=== PATIENT | male | born 1945 | race Caucasian/White ===

== ENCOUNTER → 2018-11-22 14:32 | Outpatient (BNVA) | payer MEDICARE, OTHER, SELFPAY | PROVIDERS: PCP Family Medicine; Visit Provider Student in an Organized Health Care Education/Training Program | DX: I48.0 Paroxysmal atrial fibrillation (principal); Z95.2 Presence of prosthetic heart valve; I25.10 Atherosclerotic heart disease of native coronary artery without angina pectoris; I10 Essential (primary) hypertension; Z79.01 Long term (current) use of anticoagulants | CPT/HCPCS: 99214 ==

== ENCOUNTER 2019-02-27 11:47 | Outpatient (CLI) | payer MEDICARE, OTHER, SELFPAY ==
[2019-02-27 13:13] LABS: Anion Gap 9.7 mmol/L (3-11); BUN 17 mg/dL (7-18); CO2 27.3 mmol/L (21.0-32.0); CREATININE 1.02 mg/dL (0.70-1.30); Chloride 105 mmol/L (98-107); Glucose 101 mg/dL (70-100); Potassium 4.3 mmol/L (3.5-5.1); Sodium 142 mmol/L (136-145)
== END 2019-02-27 12:07 ==
PROVIDERS: PCP Family Medicine; Visit Provider Emergency Medicine
DX: I10 Essential (primary) hypertension (principal)
CPT/HCPCS: 36415; 80048

== ENCOUNTER 2020-01-15 14:37 | Emergency (ER) | payer MEDICARE, OTHER, SELFPAY ==
[2020-01-15 14:30] VITALS: BP 164/74; PULSE 76; RESP 16; TEMP 37.1; O2SAT 98
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
--- NOTE | 2020-01-15 15:15 | NUR.NOTE ---
Nursing Note: Wound cleaned and irrigated. LET applied to wound per provider request.
[2020-01-15 15:40] VITALS: BP 145/74; PULSE 77; RESP 16; TEMP 36.7; O2SAT 98
== END 2020-01-15 15:48 | disposition home or self-care (01) ==
LOC: ER 15:46
PROVIDERS: Emergency Provider Student in an Organized Health Care Education/Training Program; PCP Family Medicine
DX: S01.01XA Laceration without foreign body of scalp, initial encounter (principal); V47.5XXA Car driver injured in collision with fixed or stationary object in traffic accident, initial encounter; Z79.01 Long term (current) use of anticoagulants; I48.0 Paroxysmal atrial fibrillation; I10 Essential (primary) hypertension
CPT/HCPCS: 12002; 99284; 70450; 99281

== ENCOUNTER → 2020-02-12 09:36 | Outpatient (BNVA) | payer MEDICARE, OTHER, SELFPAY | PROVIDERS: PCP Family Medicine; Referring Provider Family Medicine; Visit Provider Internal Medicine Cardiovascular Disease | DX: I25.10 Atherosclerotic heart disease of native coronary artery without angina pectoris (principal); I48.0 Paroxysmal atrial fibrillation; Z95.3 Presence of xenogenic heart valve; I10 Essential (primary) hypertension | CPT/HCPCS: 99214 ==

== ENCOUNTER 2020-05-06 22:29 | Emergency (ER) | payer MEDICARE, OTHER, SELFPAY ==
[2020-05-06 22:34] VITALS: BP 136/73; PULSE 72; RESP 16; TEMP 36.7; O2SAT 96
--- NOTE | 2020-05-06 22:47 | NUR.NOTE ---
Bladder scan show 698mL.
[2020-05-06 23:04] LABS: Abs Immature Grans 0.01 10^3/uL (0.0-0.06); Absolute Basophil Count 0.03 10^3/uL (0.0-0.2); Absolute Lymphocyte Count 2.32 10^3/uL (1.2-3.4); Absolute Monocyte Count 0.59 10^3/uL (0.1-0.8); Absolute Neutrophil Count 4.78 10^3/uL (1.2-6.7); Basophils % 0.4; Eosinophils % 2.5; HGB 14.8 g/dL (13.5-17.5); Immature Grans % 0.1; Lymphocytes % 29.3; MCH 30.5 pg (27.0-33.0); MCHC 33.6 % (32.0-36.0); MCV 90.5 fL (80-95); MPV 9.8 fL (8.0-11.0); Monocytes % 7.4; Neutrophils % 60.3; Nucleated RBC 0 %; Platelet Count 183 10^3/uL (130-400); RBC 4.86 10^6/uL (4.36-5.78); RDW 12.6 % (11.8-14.1); RDW-SD 41.7 fL; WBC 7.93 10^3/uL (4.4-10.8)
[2020-05-06] MEDS: Lidocaine 2% Jelly 6 ML SYR (23:10)
--- NOTE | 2020-05-06 23:10 | ED.GENADUL_ITS ---
Discharge Plan Disposition Patient Disposition: HOME Condition: Good Discharge Details Clinical Impression: Hematuria Primary Care Provider: Tiffanie Wick ED Provider: Dion Thompson Home Meds and New Rx's Prescriptions: Continued aspirin [Adult Aspirin Regimen] 81 mg tablet,delayed release (DR/EC) 81 mg PO DAILY RF: 0 triamcinolone acetonide 0.1 % cream 1 applic TP BID Qty: 30 RF: 2 garlic 1 EACH capsule 1 ea PO DAILY RF: 0 amlodipine 10 mg tablet 10 mg PO DAILY Qty: 90 RF: 4 atorvastatin 20 mg tablet 20 mg PO DAILY Qty: 90 RF: 4 metoprolol succinate 50 mg tablet extended release 24 hr 50 mg PO DAILY Qty: 90 RF: 4 Eliquis 5 mg tablet 5 mg PO BID Qty: 180 RF: 4 furosemide 40 mg tablet 40 mg PO DAILY Qty: 90 RF: 4 Discharge Instructions Instructions: Hematuria (ED) Additional Instructions: At this time your hemoglobin is stable. I suspect that your symptoms are from a small lesion in your bladder. This does need to be followed up closely with urology. Please contact their office tomorrow morning. At this time you have elected to have the Terrazas catheter removed. You may have blockage again, and if you do please return immediately. If you notice any worsening of your symptoms, or any new symptoms such as vomiting, diarrhea, fever, chills, shortness of nickolas ath, chest pain, numbness, weakness, or fainting , please return immediately to the emergency department for reevaluation. Please follow up with your primary care provider as soon as possible for reassessment and reevaluation. As always, it was a pleasure participating in your medical care today. Also, there is risks and benefits with taking your blood thinner. Currently your hemoglobin/blood levels are stable, and you have not lost a significant amount of blood. I suspect that the bleeding will not stop if you keep taking your blood thinner, but it still may continue even if you continue stopping it. However there is significant risk of not being on a blood thinner with your atrial fibrillation which could lead to stroke which could likely be even more deleterious. At this time I would recommend cautiously taking her blood thinner still, and watching for any signs of significant blood loss such as lightheadedness, palpitations, or worsening blood loss in your urine. When you call Dr. Haines's office tomorrow at the included number, please let them know you are in the emergency department had a significant amount of bleeding in your urine, and the emergency doctor, Dr. Thompson would like you to be seen. Referrals: Tiffanie Wick NP [Primary Care Provider] - Hari Haines MD [ [facility] STAFF PHYSICIAN] - Medical Decision Making 75-year-old male with past medical history of aortic valve replacement, paroxysmal A. fib on Eliquis, who presents today for evaluation of hematuria. Patient states that for the last 3 to 5 days he has had a mild amount of blood in his urine, no significant pain, no lightheadedness or syncope. Over the last hour and a half though, he had slight increase, and then subsequently noticed pressure and was unable to urinate anymore. This is the first time this is happened. Since then, in spite of straining, he has been unable to pass any urine. Aside from mild pressure in the suprapubic region he denies any pain, burning, or other complaints. No prior history of hematuria in the past. No other complaints or modifying factors at this time. The patient has still been taking his Eliquis. Physical exam demonstrates a small amount of blood at the urethral meatus, no penile tenderness or other abnormality. He does have 700 mL of retained urine. Terrazas catheter was placed, notable amount of bloody urine returned, no evidence of large clots. We will do a mild washout, monitor closely. Hemoglobin is 14.8 notably stable, he is hemodynamically stable. He will require urology follow-up for reassessment. 12:30 AM Patient's labs have returned normal, hemoglobin platelets are all normal. Renal function stable. No signs of severe blood loss, the patient remains hemodynamically stable. Patient's bladder was drained, flush, a red-tinged urine is now coming, but there is no evidence of clots. I did discuss keeping the Terrazas catheter in, however the patient because of his lifestyle does not want that at this point and would like the Terrazas to be taken out and not left him. We did discuss the risks of this, and he understands the potential for retention again. At this time there is no indication for emergent admission or emergent uroscopy/cystoscopy. Patient will be discharged. Will recommend close follow-up with urology for further assessment and cystoscopy. Because of the current provider status for urology he may require additional procedures to be performed at [facility]. We will place a referral with our urologist to start the process though. I also contacted the patient's and discussed the scenario with her. I have extensively reviewed the treatment plan and discharge instructions with the patient and their family. I have addressed all patient concerns at this time. The patient and family was made aware of what symptoms to monitor for that would warrant a return to the emergency department. Discussed the plan with the patient and family, they demonstrate verbal understanding and agreement with our assessment and plan at this time. HPI General Date/Time Provider Initiated Documentation: 05/06/20 22:32 . HPI Narrative: 75-year-old male with past medical history of aortic valve replace ment, paroxysmal A. fib on Eliquis, who presents today for evaluation of hematuria. Patient states that for the last 3 to 5 days he has had a mild amount of blood in his urine, no significant pain, no lightheadedness or syncope. Over the last hour and a half though, he had slight increase, and then subsequently noticed pressure and was unable to urinate anymore. This is the first time this is happened. Since then, in spite of straining, he has been unable to pass any urine. Aside from mild pressure in the suprapubic region he denies any pain, burning, or other complaints. No prior history of hematuria in the past. No other complaints or modifying factors at this time. The patient is still taking his Eliquis. Related Data Home Medications Medication Instructions Recorded Confirmed garlic 1 ea PO DAILY tab-cap 08/20/15 05/06/20 aspirin 81 mg tablet,delayed 81 mg PO DAILY 11/22/18 05/06/20 release triamcinolone acetonide 0.1 % 1 applic TP BID #30 gm 05/24/19 05/06/20 topical cream amlodipine 10 mg tablet 10 mg PO DAILY #90 tab-cap 06/11/19 05/06/20 atorvastatin 20 mg tablet 20 mg PO DAILY #90 tab 07/02/19 05/06/20 metoprolol succinate 50 mg 50 mg PO DAILY #90 tab 07/02/19 05/06/20 tablet,extended release 24 hr apixaban 5 mg tablet 5 mg PO BID #180 tab 07/03/19 05/06/20 furosemide 40 mg tablet 40 mg PO DAILY #90 tab-cap 07/16/19 05/06/20 Previous Rx's Medication Instructions Recorded triamcinolone acetonide 0.1 % 1 applic TP BID #30 gm 05/24/19 topical cream amlodipine 10 mg tablet 10 mg PO DAILY #90 tab-cap 06/11/19 atorvastatin 20 mg tablet 20 mg PO DAILY #90 tab 07/02/19 metoprolol succinate 50 mg 50 mg PO DAILY #90 tab 07/02/19 tablet,extended release 24 hr apixaban 5 mg tablet 5 mg PO BID #180 tab 07/03/19 furosemide 40 mg tablet 40 mg PO DAILY #90 tab-cap 07/16/19 Allergies Allergy/AdvReac Type Severity Reaction Status Date / Time adhesive Allergy Intermediate redness, Verified 04/03/20 14:41 burning sensation, blisters blue dye Allergy Verified 04/03/20 14:41 cephalexin monohydrate AdvReac Intermediate diarrhea Verified 04/03/20 14:41 [From Keflex] General Stated Complaint: Urinary OLIMPIA: 3 Review of Systems All systems reviewed & are unremarkable except as noted in HPI and below PFSH Social History Smoking/Tobacco Use Status: Current every day Tobacco Type: pipe Alcohol Intake: current Alcohol Intake frequency: 0-2 drinks per day Drug use: Never Substance use type: does not use Do you feel safe at home: Yes Do you feel safe in your relationship?: Yes Exam Narrative Exam Narrative: 1.Const: Well-nourished, Well-developed, appearing stated age 2.Eyes: PERRL, no conjunctival injection, and symmetrical lids. 3.ENT: Atraumatic external nose and ears. Moist MM. Neck: Symmetric, trachea midline, No thyromegaly. 4.CVS: +S1/S2, No murmurs or gallops. Peripheral pulses 2+ and equal in all extremities. Brisk capillary refill in all extremities. 5.RESP: Unlabored respiratory effort. Clear to auscultation bilaterally. No wheezes rales or rhonchi 6.GI: Soft, Nontender/Nondistended, No hepatosplenomegaly. No guarding or rebound. Genital exam demonstrates an uncircumcised penis, no penile tenderness, small amount of blood at the urethral meatus. No testicular or scrotal tenderness. No other abnormalities. 7.MSK: Normocephalic/Atraumatic, Extremities w/o deformity or ttp No cyanosis or clubbing, Normal movement of all extremities 8.Skin: Warm, Dry. No rashes or lesions. 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 Sensation grossly intact, no focal neurologic deficits. 10.Psych: (AAO) x3. Appropriate mood and affect Course Vital Signs Vital signs: Vital Signs Temperature 36.7 C 05/06/20 22:34 Pulse 72 05/06/20 22:34 Respiratory Rate 16 05/06/20 22:34 Blood Pressure 136/73 05/06/20 22:34 Pulse Oximetry 96 05/06/20 22:34 Temperature 36.7 C 05/06/20 22:34 Temperature Source Skin 05/06/20 22:34 Pulse 72 05/06/20 22:34 Respiratory Rate 16 05/06/20 22:34 Respiratory Effort 05/06/20 22:36 Blood Pressure 136/73 05/06/20 22:34 Blood Pressure Position Sitting 05/06/20 22:34 Pulse Oximetry 96 05/06/20 22:34 Oxygen Delivery Method Room Air 05/06/20 22:34 Oxygen Flow Rate 0 05/06/20 22:34 Pain Level 0 05/06/20 22:34 Lab/Test Results Lab/Test Results: Laboratory Tests Range/Units 05/06/20 22:55 WBC (4.4-10.8) 10^3/uL 7.93 RBC (4.36-5.78) 10^6/uL 4.86 Hgb (13.5-17.5) g/dL 14.8 Hct (40.0-50.0) % 44.0 MCV (80-95) fL 90.5 MCH (27.0-33.0) pg 30.5 MCHC (32.0-36.0) % 33.6 RDW (11.8-14.1) % 12.6 Plt Count (130-400) 10^3/uL 183 MPV (8.0-11.0) fL 9.8 Immature Gran % 0.1 Neutrophils % 60.3 Lymphocytes % 29.3 Monocytes % 7.4 Eosinophils % 2.5 Basophils % 0.4 Nucleated RBC % % 0 Absolute Neutrophils (1.2-6.7) 10^3/uL 4.78 Absolute Lymphocytes (1.2-3.4) 10^3/uL 2.32 Absolute Monocytes (0.1-0.8) 10^3/uL 0.59 Absolute Eosinophils (0.0-0.7) 10^3/uL 0.20 Absolute Basophils (0.0-0.2) 10^3/uL 0.03
[2020-05-06 23:16] LABS: ALT 39 U/L (16-63); AST 27 U/L (15-37); Albumin 3.8 g/dL (3.4-5.0); Alkaline Phosphatase 106 U/L (46-116); Anion Gap 8.8 mmol/L (3-11); BUN 16 mg/dL (7-18); Bilirubin, Total 0.5 mg/dL (0.2-1.0); CO2 26.2 mmol/L (21.0-32.0); CREATININE 0.95 mg/dL (0.70-1.30); Calcium 8.5 mg/dL (8.5-10.1); Chloride 103 mmol/L (98-107); Glucose 114 mg/dL (74-106); Potassium 3.3 mmol/L (3.5-5.1); Sodium 138 mmol/L (136-145); Total Protein 7.1 g/dL (6.4-8.2)
[2020-05-06 23:36] LABS: INR 1.1 (0.9-1.1); PTT Activated 26.6 sec (21.0-31.4); Prothrombin Time 10.6 sec (9.3-11.0)
[2020-05-06 23:36] LABS: Bilirubin Negative (Negative); Blood Large (Negative); Clarity Cloudy (Clear); Glucose Negative (Negative); Ketones Negative (Negative); Leukocyte Esterase Negative (Negative); Nitrite Negative (Negative); Specific Gravity >= 1.030 (1.005-1.025); Urobilinogen 0.2 EU/dL (Up TO 0.2); pH 6.5 (5-8)
[2020-05-06 23:37] LABS: C & S Indicated? Yes; RBC >50 HPF (0-2)
--- NOTE | 2020-05-07 00:04 | NUR.NOTE ---
16fr hernandez placed using sterile technique. pt cristela well. Immediately drained dark red urine. hand irrigated x 2 followed by bright red urine draining. Pt reports relief of abd discomfort.
--- NOTE | 2020-05-07 00:30 | NUR.NOTE ---
Urine light red, hernandez patent. Pt declined to go home with catheter in place. Hernandez removed, balloon intact. pt aware dtv [phone]
== END 2020-05-07 00:32 | disposition home or self-care (01) ==
PROVIDERS: Emergency Provider Student in an Organized Health Care Education/Training Program; PCP Nurse Practitioner Family
DX: R33.8 Other retention of urine (principal); R31.0 Gross hematuria; T45.515A Adverse effect of anticoagulants, initial encounter; I48.0 Paroxysmal atrial fibrillation; Z79.01 Long term (current) use of anticoagulants
CPT/HCPCS: 36415; 51702; 80053; 99284; 81003; 81015; 85025; 85610; 85730; 87086

== ENCOUNTER 2020-05-12 12:54 | Outpatient (REF) | payer MEDICARE, OTHER, SELFPAY | END 2020-05-12 13:14 | LOC: URO 12:54 | PROVIDERS: PCP Nurse Practitioner Family; Referring Provider Nurse Practitioner Family; Visit Provider Nurse Practitioner Gerontology | DX: N40.1 Benign prostatic hyperplasia with lower urinary tract symptoms (principal); R39.11 Hesitancy of micturition; I10 Essential (primary) hypertension; R31.9 Hematuria, unspecified | CPT/HCPCS: 81003; 84153; 99204; 99215 ==

== ENCOUNTER 2020-05-12 14:20 | Outpatient (REF) | payer MEDICARE, OTHER, SELFPAY ==
[2020-05-12 22:08] LABS: PSA, Screening 0.6 ng/mL (0.0-6.5)
== END 2020-05-12 14:40 ==
LOC: LBN 14:20
PROVIDERS: Nurse Practitioner Gerontology; PCP Nurse Practitioner Family; Visit Provider Nurse Practitioner Family
DX: R31.9 Hematuria, unspecified (principal); N40.1 Benign prostatic hyperplasia with lower urinary tract symptoms; Z12.5 Encounter for screening for malignant neoplasm of prostate
CPT/HCPCS: 84153

== ENCOUNTER 2020-05-19 01:18 | Outpatient (CLI) | payer MEDICARE, OTHER, SELFPAY ==
--- NOTE | 2020-05-19 06:30 | DI.CT_ITS ---
EXAM: CT ABDOMEN PELVIS WO/W TECHNIQUE: Imaging Protocol: Axial computed tomography images with coronal and sagittal reformatted images were created and reviewed CONTRAST MATERIAL: Intravenous: Omnipaque 350 Contrast volume:100 ml Contrast route:IV - Oral:yes COMPARISON: CT CT CARDIAC WITH AND WITHOUT CONTRAST, CT ANGIO ABDOMEN/PELVIS WI from 12/19/2015 FINDINGS: ABDOMEN: Lung Bases: Normal where visualized. Liver: Normal density. Tiny cyst anterior right lobe. Gallbladder and biliary tract: No radiodense calculus or dilation. Pancreas: Normal density, no abnormal calcifications or inflammatory process. Spleen: Normal. Kidneys: Normal size, contour and axis. No radiodense stones or obstructive uropathy. No masses seen. Adrenal glands: No masses seen. Lymph nodes: Within normal limits. Abdominal Aorta: Abdominal portion non-dilated. Mild calcification. Small fatty umbilical hernia containing a nonobstructed loop of small bowel. PELVIS: Bladder: 14 x 17 millimeter mass seen along the left posterior inferior bladder wall. No calcificati ons. Mild adjacent wall thickening. Bowel: No obstruction or bowel wall thickening. Diverticulosis. Normal appendix. Peritoneal cavity: No ascites, collection or mesenteric inflammatory response. Bilateral fatty containing inguinal hernias, right greater than left. Bones: Mild degenerative changes. Sclerotic area in the S2 vertebral body, likely a bone island. Reproductive organs: Prostate mildly enlarged. IMPRESSION: 1.7 centimeter mass in the posterior left side of the bladder. The kidneys are unremarkable. RADIATION DOSE DELIVERED: 2,389.5mGy.cm Total DLP DATA REPOSITORY: All CT scans at this facility are submitted to the National Radiology Data Registry (NRDR) Dose Index Registry (DIR) with the [employer] (ACR). RADIATION OPTIMIZATION: All CT scans at this facility use at least one of these dose optimization te chniques: automated exposure control; mA and/or kV adjustment per patient size (includes targeted exa ms where dose is matched to clinical indication); or iterative reconstruction.
[2020-05-19] MEDS: Omnipaque 350 MG/ML 100 ML BTL IJ (09:55)
[2020-05-19] MEDS: Normal Saline - Diluent 50 ML VIAL IV (09:56)
== END 2020-05-19 01:38 ==
PROVIDERS: PCP Nurse Practitioner Family; Visit Provider Nurse Practitioner Gerontology
DX: N32.89 Other specified disorders of bladder (principal)
CPT/HCPCS: 74178; J3490

== ENCOUNTER 2020-05-21 14:00 | Outpatient (CLI) | payer MEDICARE, OTHER, SELFPAY | END 2020-05-21 14:20 | PROVIDERS: PCP Nurse Practitioner Family; Visit Provider Nurse Practitioner Gerontology | DX: N32.89 Other specified disorders of bladder (principal); R35.1 Nocturia | CPT/HCPCS: 99441 ==

== ENCOUNTER 2020-10-02 20:49 | Outpatient (REF) | payer MEDICARE, SELFPAY ==
[2020-10-02 21:22] LABS: Hemoglobin A1C 6.1 % (<5.7)
[2020-10-02 21:30] LABS: Anion Gap 9.1 mmol/L (3-11); BUN 17 mg/dL (7-18); CO2 29.9 mmol/L (21.0-32.0); CREATININE 1.2 mg/dL (0.70-1.30); Calcium 9.2 mg/dL (8.5-10.1); Calculated LDL 74 mg/dL (<100); Chloride 105 mmol/L (98-107); Cholesterol 150 mg/dL (<200); Estimated GFR 58.71 (mL/min/1.73m2); Glucose 134 mg/dL (74-106); HDL Cholesterol 53 mg/dL (40-60); Potassium 3.8 mmol/L (3.5-5.1); Sodium 144 mmol/L (136-145); Triglyceride 116 mg/dL (<150)
== END 2020-10-02 20:50 | disposition home or self-care (01) ==
LOC: LBN 20:49
PROVIDERS: PCP Nurse Practitioner Family; Visit Provider Nurse Practitioner Family
DX: R73.03 Prediabetes (principal); I10 Essential (primary) hypertension; E78.5 Hyperlipidemia, unspecified
CPT/HCPCS: 80048; 80061; 83036

== ENCOUNTER 2021-02-10 02:20 | Outpatient (CLI) | payer MEDICARE, SELFPAY ==
--- NOTE | 2021-02-10 14:11 | DI.US_ITS ---
APPROVED REPORT EXAM: Comprehensive 2D, Doppler, and color-flow Echocardiogram Patient Location: Out-Patient Block Operator: Gege Zuluaga RDCS (AE) Indications: Porcine aortic valve, CAD Other Information Study Quality: Adequate Conclusion Left Ventricle : The left ventricle is normal size. There is normal left ventricular wall thickness. The left ventricular ejection fraction is within the normal range. There is normal LV segmental wall motion. LVEF is 58%. Right Ventricle : The right ventricle is normal size. The right ventricular systolic function is norm al. Atria : The left atrium size is normal. The right atrium size is normal. Aortic Valve : Bioprosthetic aortic valve is present. Trivial aortic regurgitation. Moderately elevat ed gradients. Mean gradient 25 mmHg, peak gradient 42 mmHg. V-max 3.25 m/s Great Vessels : The aortic root is normal in size. The ascending aorta is moderately dilated. Aortic arch is normal in caliber. IVC is normal in size and collapses >50% with inspiration. Compared to echocardiogram from 11/16/2017, the mean gradient across the bioprosthetic aortic valve young s increased from 10 mmHg to 25 mmHg. Peak velocity is also increased from 2.1 m/s to 3.2 m/s. Wall motion Left Ventricle The left ventricle is normal size. The left ventricular ejection fraction is within the normal range. There is normal left ventricular wall thickness. There is normal LV segmental wall motion. There is no ventricular septal defect visualized. LVEF is 58%. Right Ventricle The right ventricle is normal size. The right ventricular systolic function is normal. Atria The left atrium size is normal. The right atrium size is normal. The interatrial septum is intact wit h no evidence for an atrial septal defect. Aortic Valve Moderately elevated gradient. Mean gradient 25 mmHg, peak gradient 42 mmHg.. V-max 3.25 m/s Trivial a ortic regurgitation. Bioprosthetic aortic valve is present. Mitral Valve Moderate mitral annular calcification. No evidence of mitral valve stenosis. Trace mitral regurgitati on. Tricuspid Valve The tricuspid valve is normal in structure. There is no tricuspid valve stenosis. Trace tricuspid reg urgitation. Unable to assess PA pressure. Pulmonic Valve The pulmonary valve is normal in structure. There is no pulmonic valvular stenosis. Trace pulmonic re gurgitation. Great Vessels The aortic root is normal in size. The ascending aorta is moderately dilated. Aortic arch is normal i n caliber. IVC is normal in size and collapses >50% with inspiration. Pericardium There is no pericardial effusion. 2D Dimensions IVSD d PLAX 1.20 cm M: 0.6-1.2 LV Vol A2C d MOD 111.2 mL LVPW d PLAX 1.21 cm M: 0.6 - 1.2 LV Vol A4C d MOD 135.9 mL LVID d PLAX 4.49 cm M: 4.2 - 5.8 LA vol/ BSA A2C s A-L 30.9 mL/m2 LVDs 2.85 cm M: 2.5 - 4.0 LA vol/ BSA A4C s A-L 31.5 mL/m2 Ao Root d 2.85 cm M: 3.1 - 3.7 LA Vol/ BSA Biplane s A-L 32.0 mL/m2 RA Area A4C 16.77 cm2 LA Area A4C s MOD 21.37 cm2 RA Vol/ BSA A4C s A-L 23.6 mL/m2 LA Area A2C s MOD 20.62 cm2 Ao Asc Diam d 4.04 cm M: 2.6 - 3.4 LV EF A4C MOD 56.3 % LV EF Teichholz 65.2 % LV EF A2C MOD 57.8 % LVEF (Rodriguez's) 56.34 % M: 52 - 72 LV EF Biplane MOD 56.3 % LV Volume 92.42 mL M: 62 - 150 SV 69.33 mL LV Volume Index 46.44 mL/m2 M: 34 - 74 SV Index 34.81 mL/m2 LV Vol Biplane MOD 123.1 mL FS 35.55 % M-Mode TAPSE 1.67 cm (M/F) >1.7 LV Diastology MV E' medial 0.065 (>0.07 m/s) E/A Ratio 1.2 LV E/e MED 13.25 (<14) MV E Vmax 0.86 (0.4-1.3 m/s) MV E' lateral 0.083 (>0.1 m/s) MV A Vmax 0.70 (0.4-1.3 m/s) LV E/e LAT 10.40 (<14) MV E/A Ratio 1.18 MV E/E' medial 13.27 MV E/E' lateral 10.40 Aortic Valve LVOT Area 3.18 cm2 AoV Area Vmax 1.25 cm2 LVOT Vmax 1.28 m/s AoV Area/ BSA (Vmax) 0.63 cm2/m2 LVOT Mean Rishi. 0.98 m/s ALONDRA Mean Rishi. 1.31 cm2 LVOT Peak Grad 6.5 mmHg ALONDRA Mean Rishi. Index 0.66 cm2/m2 LVOT Mean Grad 4.1 mmHg LVOT VTI 0.338 m LVOT Diam s 2.00 cm AoV Vmax 3.25 m/s Velocity Ratio 0.39 AoV Mean Rishi. 2.38 m/s AoV Peak Grad 42.2 mmHg LVOT SV 107.53 mL AoV Mean Grad 25.4 mmHg AoV VTI 0.802 m AoV Area VTI 1.34 cm2 AoV Area/ BSA (VTI) 0.67 cm/m2 Mitral Valve MV DT 224 (160-240 msec) MV PHT 65 msec MV Area PHT 3.39 cm2 MV VTI 0.312 m MV VTI Annulus 0.328 m MV Area VTI 3.62 (4.0-6.0 cm2) Pulmonary Valve PV Vmax 0.97 (0.5-1.5 m/s) RVOT Peak Gr. 2.39 mmHg PV Peak Grad 3.7 mmHg RVOT Mean Gr. 1.25 mmHg PV Mean Grad 1.9 mmHg RVOT VTI 0.184 m PV VTI 0.196 m RVOT Vmax 0.77 m/s
== END 2021-02-10 02:40 ==
PROVIDERS: PCP Nurse Practitioner Family; Visit Provider Internal Medicine Cardiovascular Disease
DX: I25.10 Atherosclerotic heart disease of native coronary artery without angina pectoris (principal); I77.810 Thoracic aortic ectasia; Z95.3 Presence of xenogenic heart valve
CPT/HCPCS: 93306

== ENCOUNTER → 2021-02-16 10:34 | Outpatient (BNVA) | payer MEDICARE, SELFPAY | PROVIDERS: PCP Nurse Practitioner Family; Referring Provider Family Medicine; Visit Provider Internal Medicine Cardiovascular Disease | DX: I10 Essential (primary) hypertension (principal); I25.10 Atherosclerotic heart disease of native coronary artery without angina pectoris; I48.0 Paroxysmal atrial fibrillation; Z95.3 Presence of xenogenic heart valve | CPT/HCPCS: 99213 ==

== ENCOUNTER 2021-10-15 03:53 | Outpatient (CLI) | payer MEDICARE, OTHER, SELFPAY ==
[2021-10-15 09:22] LABS: HCT 48.1 % (40.0-50.0); HGB 15.7 g/dL (13.5-17.5); MCH 29.1 pg (27.0-33.0); MCHC 32.6 % (32.0-36.0); MCV 89.1 fL (80-95); MPV 10.1 fL (8.0-11.0); Platelet Count 151 10^3/uL (130-400); RDW 12.8 % (11.8-14.1); RDW-SD 41.8 fL; WBC 7.07 10^3/uL (4.4-10.8)
[2021-10-15 09:28] LABS: Hemoglobin A1C 6.1 % (<5.7)
[2021-10-15 10:56] LABS: Anion Gap 9.3 mmol/L (3-11); BUN 17 mg/dL (7-18); CO2 28.7 mmol/L (21.0-32.0); Calcium 8.7 mg/dL (8.5-10.1); Chloride 100 mmol/L (98-107); Glucose 112 mg/dL (74-106); Sodium 138 mmol/L (136-145); Vitamin B12 456 pg/mL (193-986)
== END 2021-10-15 03:54 | disposition home or self-care (01) ==
LOC: LBO 03:53
PROVIDERS: PCP Nurse Practitioner Family; Visit Provider Nurse Practitioner Family
DX: G62.9 Polyneuropathy, unspecified (principal); R73.03 Prediabetes; I48.0 Paroxysmal atrial fibrillation
CPT/HCPCS: 36415; 80048; 85027; 82607; 83036

== ENCOUNTER → 2022-02-12 00:56 | Outpatient (CLI) | payer MEDICARE, OTHER, SELFPAY ==
--- OUTSIDE RECORDS SUMMARY | 2022-02-12 00:58 | XMS_ITS | Encounter Summary ---
:1945 Author Organization [facility] Address [address] [place] [address] Care Team Providers Name Role Phone Unknown, Provider Primary Care Provider Encounter Details Date Type Department Care Team Description 05/12/2020 Lab Requisition [facility] Outr Resulting Lab, Pathology & Laboratory Provider [facility] [address] [place] [address] Social History Tobacco Use Types Packs/Day Years Used Date Never Assessed Sex Assigned at Date Recorded Not on file documented as of this encounter Plan of Treatment Not on filedocumented as of this encounter Procedures Procedure Name Priority Date/Time Associated Comments Diagnosis PSA TOTAL, Routine 05/12/2020 13:40 Results for this DIAGNOSTIC EDT procedure are i n the results section. documented in this encounter Results PSA TOTAL, DIAGNOSTIC (05/12/2020 13:40 EDT) Pathologist Sig nature PSA 0.6 0.0 - 6.5 ng/mL [facility] Specimen Blood - Venous blood (substance) Narrative [facility] - 05/12/2020 22:04 EDT NOTE: Serum PSA concentration should not be in terpreted as absolute evidence for the presence or absence of malignant disease. Assayed on Siemens ADVIA Centaur XPT usi ng chemiluminescent technology.??Values obtained by using different assay methods cannot be used interchangeably. Performing Organization Address City/State/ZIP Code Phon e Number [facility] [address] [place] [address] SERVICES documented in this encounter Visit Diagnoses Not on filedocumented in this encounter Care Teams Stock Sheets Cleaner Inspector Relationship Specialty Start Date End Date Unknown, Provider, PCP - General 07/10/15 documented as of this encounter
--- OUTSIDE RECORDS SUMMARY | 2022-02-12 00:58 | XMS_ITS | Encounter Summary ---
:1945 Author Organization [facility] [place] [address] Care Team Providers Name Role Phone Kristofer Velasquez MD Primary Care Provider Encounter Details Date Type Department Care Team Description 07/08/2020 Telephone Urology at [facility] [place] Kristofer Romero MD [facility] [place] [phone] UROLOGY [phone] [place], [place] [address] (Wo rk) Social History Tobacco Use Types Packs/Day Years Used Date Current Every Day Smoker Pipe Smokeless Tobacco: Never Used Sex Assigned at Date Recorded Not on file documented as of this encounter Miscellaneous Notes Telephone Encounter - Kaela Melvin - 07/08/2020 9:31 AM EST Called pt to reschedule 07/21 bumped appointment. However, pt did not have surgery on 07/01 and no longer needs 07/21 appt. said he did not need to reschedule and would call if/when he feels he needs to be seen. documented in this encounter Plan of Treatment Not on filedocumented as of this encounter Visit Diagnoses Not on filedocumented in this encounter Care Teams Senior Cobol Developer Relationship Specialty Start Date End Date Kristofer Velasquez MD PCP - General Family Medicine 04/14/20 10/06/[address] [place] [address] documented as of this encounter
--- OUTSIDE RECORDS SUMMARY | 2022-02-12 00:58 | XMS_ITS | Encounter Summary ---
:1945 Author Organization [facility] Address [address] [place] [address] Care Team Providers Name Role Phone Unavailable Primary Care Provider Unavailable Encounter Details Date Type Department Care Team Description 07/08/2015 Hospital Encounter [facility] - S Unknown, Pro Nolvia burroughs MD [address] [facility] [phone] [place] [address] (Work) [phone] Social History Tobacco Use Types Packs/Day Years Used Date Never Assessed Sex Assigned at Date Recorded Not on file documented as of this encounter Discharge Disposition Disposition Code Departure Means Destination Home or Self Alf documented in this encounter Plan of Treatment Not on filedocumented as of this encounter Visit Diagnoses Not on filedocumented in this encounter
--- OUTSIDE RECORDS SUMMARY | 2022-02-12 00:58 | XMS_ITS | Clinical Summary ---
:1945 Author Organization [facility] Address [address] [place] [address] Care Team Providers Name Role Phone Unknown, Provider Primary Care Provider Social History Tobacco Use Types Packs/Day Years Used Date Never Assessed Sex Assigned at Date Recorded Not on file Plan of Treatment Health Maintenance Due Date Last Done Comments Fall Risk Screening 02/13/2008 Care Teams Band Head Saw Operator Relationship Specialty Start Date End Date Unknown, Provider, PCP - General 07/10/15
--- OUTSIDE RECORDS SUMMARY | 2022-02-12 00:58 | XMS_ITS | Encounter Summary ---
:1945 Author Organization [facility] [place] [address] Care Team Providers Name Role Phone Kristofer Velasquez MD Primary Care Provider Reason for Visit Reason Comments Bladder Cancer Consultation (MARY) - Closed Specialty Diagnoses / Procedures Referred By Contact Refer red To Contact Urology Diagnoses Other specified disorders of bladder 1.7 centimeter mass in the posterior left side of the bladder Hx of gross hematuria Requesting MARY/urgent cysto w/ TURB-T Sarita Pearson, DAVID [facility] [address] [place] [id number] Referral ID Status Reason Start Date Expiration Date Visits V isits Requested Authorized [id number] Closed Consult, 05/21/2020 05/21/2021 1 1 Test & Treat Encounter Details Date Type Department Care Team Description 05/29/2020 Office Visit Hematology and Kristofer Romero MD Hematuria, unspecified type; Oncology at [facility] Bladder mass [facility] [place] UROLOGY [place], [place] [phone] Social History Tobacco Use Types Packs/Day Years Used Date Current Every Day Smoker Pipe Smokeless Tobacco: Never Used Sex Assigned at Date Recorded Not on file documented as of this encounter Last Filed Vital Signs Vital Sign Reading Time Taken Comments Blood Pressure 155/83 05/29/2020 10:08 AM EDT Pulse 66 05/29/2020 10:08 AM EDT Temperature - - Respiratory Rate 18 05/29/2020 10:08 AM EDT Oxygen Saturation 98% 05/29/2020 10:08 AM EDT Inhaled Oxygen Concentration - - Weight 91.1 kg (200 lb 13.4 oz) 05/29/2020 10:08 AM EDT Height 168.5 cm (5' 6.34) 05/29/2020 10:08 AM EDT Body Mass Index 32.09 05/29/2020 10:08 AM EDT documented in this encounter Progress Notes Kristofer Romero MD - 05/29/2020 9:50 AM EDT Patient Name: Rosas Kaplan Date of Service: 05/29/2020 Primary Care Provider: Kristofer Velasquez MD Reason for Visit: Rosas Kaplan is a 75 y.o. male who is referred for evaluation of a bladder massand hematuria. Patient initially noted hematuria in early 05/2020. Subsequently hisbleeding worsened and he developed urinary retention related to hematuria.~ 3 weeksago Currently the patient has no irritative symptoms with minimal frequencyand nocturia x 1. The urinarystream is OK and the bladder is emptied completely. There has no hematuria for 2 weeks. Appetite is good weight is stable. There is no bone pain. 05/2020: IPSS 7/35 Past Medical History: A Fib Hyperlipidemia HTN CAD Past Surgical History: 2016 [facility] Groin surgery age 2-3 years of age Medications: Reviewed Allergies: Reviewed Family History: There is no family history of bladder /renal tumor. No diseases run in the family. 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 The patient has been for 11 years. The patient drinks3 per day. Tobacco: Smokes a pipe. Encouraged quit. Systems review: No regular exercise. He can walk 203 flights of stairs. HEENT: Denies problems with vision, hearing, runny nose, epistaxis, sore throat, hoarseness Cardiovascular: Denies Chest pain, palpitations, shortness of breath, ankle swelling, claudication Respiratory: Denies cough, phlegm, hemoptysis,wheeze, Gastrointestinal: Denies nausea, difficulty swallowing, vomiting, hematemesis, constipation, diarrhea, blood per rectum Neurological: Denies dizziness, double vision, headache, weakness of one side of the body or the other,sudden loss of vision in one eye, Bones and muscles: Denies bone pain, radiating pain, muscle weakness or sore ness. All other systems negative. Physical Exam: Vital Signs are reviewed. The patient appears healthy and in no distress. Examination of the hands, head neck, eyes ears nose and throat is normal. The skin is normal. There is no lymphadenopathy or thyroidomegaly. He is edentulous. The chest is clear to percussion and auscultation. Heart sounds I and II are normal without murmurs or added sounds. Peripheral pulses are full withoutbruits The abdomen is benign. There are no masses or organomegaly. External genitalia is normal with bilaterally descended testis and normal phallus Examination of the extremities and neurological examination is grossly normal. Lab values are reviewed 05/2002 PSA 0.6 X-rays are reviewed 05/19/2020 CT Urogram Enhancing Left bladder base mass.. No adenopathy. No hydronephrosis. No renal masses Cystoscopy 05/2020 ~ 2cm papillary appearing bladder tumor on the Left trigone, likely high grade. I was unableto see the LUCAS. 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 We will make the arrangements. documented in this encounter Procedure Notes Kristofer Romero MD - 05/29/2020 9:50 AM EDTAssociated Order(s): CYSTOSCOPY Pre-Procedure Diagnose(s): Bladder mass Procedure: Flexible Cystoscopy Surgeon: Kristofer Romero Preoperative Diagnosis: Hemturia Post Operative Diagnosis: 2cm Bladder Cancer Left hemitrigone Complications: None Procedure: Urinalysis revealed no evidence of an active urinary tract infection. After informed consent was obtained and the external genitalia appropriately cleaned and draped, lidocaine was instilled into the urethra to achieve topical anaesthesia. The flexible telescope was inserted into the urethra and advanced into the bladder under direct vision. The bladder was systematically inspected through 360 degrees with the flexible telescope including retroversion. The anterior urethroscopy was normal. The prostatic fossa was normal. The right ureteral orifice was in normal position and effluxed clear urine. I was unable to see the left around the tumor The bladder was notable for a single 2cm Left hemitrigone tumor with substantial associated neovascularity . There were no other bladder tumors, mucosal abnormalities or bladder stones. The cystoscope was removed. The patient tolerated the procedure without difficulty. There were no complications. Kristofer Romero documented in this encounter Plan of Treatment Not on filedocumented as of this encounter Procedures Procedure Name Priority Date/Time Associated Diagnosis Comme nts CYSTOSCOPY Routine 05/29/2020 9:50 AM Bladder mass Results f or this EDT procedure are i n the results section . documented in this encounter Results Urine culture Clean Catch Urine (05/29/2020 2:00 PM EDT) [facility] Method Time Signature Urine Culture No growth YARI CHADWICK (Less than [facility] 1,000 [facility] cfu/ml). LABORATORY Specimen (Source) Anatomical Collection Method Collection Time Re ceived Time Location / / Volume Laterality Urine specimen 05/29/2020 2:00 05/29/2020 4:14 obtained by clean PM EDT PM EDT catch procedure (specimen) Resulting Agency Comment Spec In Lab Kristofer Romero MD MICROBIOLOGY - GENERAL ORDER FRANKI Performing Organization Address City/State/ZIP Code Phon e Number [facility] [address] documented in this encounter Visit Diagnoses Diagnosis Hematuria, unspecified type Bladder mass Other specified disorders of bladder documented in this encounter Care Teams Anesthesiologist Physician Relationship Specialty Start Date End Date Kristofer Velasquez MD PCP - General Family Medicine 04/14/20 10/06/[address] [place] [address] documented as of this encounter
--- OUTSIDE RECORDS SUMMARY | 2022-02-12 00:58 | XMS_ITS | Encounter Summary ---
:1945 Author Organization [facility] [place] [address] Care Team Providers Name Role Phone Kristofer Velasquez MD Primary Care Provider Encounter Details Date Type Department Care Team Description 06/23/2020 Telephone [place] [facility] Kristofer Romero MD [facility] [place] [address] UROLOGY [phone] [place], [place] [address] (Wo rk) Social History Tobacco Use Types Packs/Day Years Used Date Current Every Day Smoker Pipe Smokeless Tobacco: Never Used Sex Assigned at Date Recorded Not on file documented as of this encounter Miscellaneous Notes Telephone Encounter - Valorie Mendez - 06/23/2020 8:24 AM EST called to cancel surgery on 07/01. Pt is very fearful of covid and will call if symptoms worsen to reschedule. Thank you Valorie documented in this encounter Plan of Treatment Not on filedocumented as of this encounter Visit Diagnoses Not on filedocumented in this encounter Care Teams Architectural Modeler Relationship Specialty Start Date End Date Kristofer Velasquez MD PCP - General Family Medicine 04/14/20 10/06/[address] [place] [address] documented as of this encounter
--- OUTSIDE RECORDS SUMMARY | 2022-02-12 00:58 | XMS_ITS | Encounter Summary ---
:1945 Author Organization [facility] Address [address] [place] [address] Care Team Providers Name Role Phone Unknown, Provider Primary Care Provider Encounter Details Date Type Department Care Team Description 07/08/2015 Results Only [facility] [place], [address] [place], [place] [id number] (Wo rk) Social History Tobacco Use Types Packs/Day Years Used Date Never Assessed Sex Assigned at Date Recorded Not on file documented as of this encounter Plan of Treatment Not on filedocumented as of this encounter Procedures Procedure Name Priority Date/Time Associated Diagnosis Comme [facility] SURGICAL PATHOLOGY Routine 07/08/2015 9:51 EST Re sults for this procedure are i n the results section. documented in this encounter Results SURGICAL PATHOLOGY (07/08/2015 9:51 EST) Pathology Report: SURGICAL PATHOLOGY REPORT [facility] Reports generated via electronic interface contain brittani ginal data; LABORATORY however they are lacking the format of the original re port. SERVICES Caution should be taken when reading/interpreting unfo rmatted reports. Name: ? AB ROTHMAN ? Accession #: ? [id number] ? : ? 1945 (Age: 5 2) ??M ? Collect Date: ? 07/08/2015 ? Location: ? [facility] ? Receive Date: ? 07/10/20 15 ? Provider: BRYSON SUBRAMANIAN DO Copy to: KYRA YEPEZ MD ? Final Pathologic Diagnosis: A. ??SKIN OF SHOULDER, LEFT ANTERIOR, PUNCH BIOPSY: - Basal cell carcinoma, nodular type. See comment. - Lesion extends to peripheral edge and base of biops y specimen. B. ??SKIN OF BACK, LEFT UPPER, SHAVE BIOPSY: - Seborrheic keratosis. C. ??SKIN OF NASAL TIP, SHAVE BIOPSY: - Hemangioma. ?? - Mild chronic folliculitis and perifolliculitis. Comment: Deeper levels have been examined on block C1. ??(Dr. Keven jones)/ljn Document reviewed and electronically signed by: RAJESH LEBLANC MD Report ??Date: 07/14/2015 11:21 By the signature above, the attending physician certif ies that he/she has personally conducted a gross and/or microscopic examin ation of the described specimens and rendered or confirmed the above diagnosi s. Specimen(s) Received: A. ??3.0 mm punch biopsy left anterior shoulder B. ??Left upper back shave biopsy C. ??Nasal tip Clinical History: Irregular lesions, bleeding left shoulder skin lesion; clinical diagnosis code: D49.2 Gross Description: A. ?Received in formalin labelled with proper p atient identification (initials M, R) and punch biopsy left anterior should er is a partially fragmented punch biopsy of t an-brown mottled skin (0.3 cm in diameter and 0.4 cm in thickness). ??The specimen is submitted intact in A 1. B. ?Received in formalin labelled with proper p atient identification (initials M, R) and left upper back is a shave biopsy of tong-brown mottled, focally friable skin (1.3 x 1.0 x 0.1 cm). ??The specimen is serially sectioned and entirely submitted in B1 and B2. C. ?Received in formalin labelled with proper p atient identification (initials M, R) and nasal t ip is a shave biopsy of pink-tong skin (0.6 x 0.4 x 0.1 cm). There is a central tong-red papule that measur es 0.2 x 0.1 x 0.1 cm. The specimen is bisected and entirely submitted in C1. Fransisco López 07/10/2015 10:56 AM End of Report Specimen Performing Organization Address City/State/ZIP Code Phon e Number [facility] [address] [place] [address] SERVICES documented in this encounter Visit Diagnoses Not on filedocumented in this encounter Care Teams Landman Relationship Specialty Start Date End Date Unknown, Provider, PCP - General 07/10/15 documented as of this encounter
--- OUTSIDE RECORDS SUMMARY | 2022-02-12 00:58 | XMS_ITS | Encounter Summary ---
:1945 Author Organization [facility] [place] [address] Care Team Providers Name Role Phone Kristofer Velasquez MD Primary Care Provider Encounter Details Date Type Department Care Team Description 05/19/2020 Ancillary Procedure Radiology Library at Kristofer Velasquez MD [facility] [place] [id number] [place] [address] (Wo rk) [phone] Social History Tobacco Use Types Packs/Day Years Used Date Never Assessed Sex Assigned at Date Recorded Not on file documented as of this encounter Plan of Treatment Not on filedocumented as of this encounter Procedures Procedure Name Priority Date/Time Associated Diagnosis Comme nts FILM LIBRARY Routine 05/19/2020 12:00 AM Results for this STORAGE ONLY CT EDT procedure ar e in ABDOMEN AND PELVIS the resul ts section. documented in this encounter Results Film Library- Storage Only CT Abdomen & Pelvis (05/19/2020 12:00 AM EDT) Specimen (Source) Anatomical Location Collection Method / Collectio n Time Received Time / Laterality Volume Narrative RAD - 05/21/2020 4:28 PM EDT This exam is auto-finalizing. It's purpo se is for storage only. Kristofer Velasquez MD G FILM LIBRARY ORDERABLES Performing Organization Address City/State/ZIP Code Phon e Number [facility] [place], [place] documented in this encounter Visit Diagnoses Not on filedocumented in this encounter Care Teams Administration Clerk Relationship Specialty Start Date End Date Kristofer Velasquez MD PCP - General Family Medicine 04/14/20 10/06/[address] [place] [address] documented as of this encounter
--- OUTSIDE RECORDS SUMMARY | 2022-02-12 00:58 | XMS_ITS | Encounter Summary ---
:1945 Author Organization [facility] Address [facility] [address] [place] [id number] Care Team Providers Name Role Phone Kristofer Velasquez MD Primary Care Provider Reason for Visit Reason Comments Hematuria Encounter Details Date Type Department Care Team Description 05/29/2020 Office Visit Urology at [facility] Kristofer Romero MD Bladder mass; [facility] Hem aturia, unspecified type [address] [place] [address] [place] [address] [phone] Social History Tobacco Use Types Packs/Day Years Used Date Current Every Day Smoker Pipe Smokeless Tobacco: Never Used Sex Assigned at Date Recorded Not on file documented as of this encounter Last Filed Vital Signs Vital Sign Reading Time Taken Comments Blood Pressure 148/69 05/29/2020 1:17 PM EDT Pulse 69 05/29/2020 1:17 PM EDT Temperature 37 ??C (98.6 ??F) 05/29/2020 1:17 PM EDT Respiratory Rate 20 05/29/2020 1:17 PM EDT Oxygen Saturation 98% 05/29/2020 1:17 PM EDT Inhaled Oxygen Concentration - - Weight 90.7 kg (200 lb) 05/29/2020 1:17 PM EDT Height 167.6 cm (5' 6) 05/29/2020 1:17 PM EDT Body Mass Index 32.28 05/29/2020 1:17 PM EDT documented in this encounter Patient Instructions Patient InstructionsJb aJckson LPN - 05/29/2020 1:00 PM EDT Instructions following Cystoscopy Activity: As tolerated by your comfort level. Fluids: You should increase your water today. Avoid coffee, tea and cola. You do not need to exceed 64 ounces of water today. Urination: You will likely have a small amount of blood in your urine for the next several days. This is normal; however, if you are passing large amounts of blood clots or are unable to void please call our office at [phone] before 5PM or [phone] after hours. Please call if: * you have copious blood in your urine * fevers greater than 101.3 F * you are unable to void The number for questions is [phone] before 5 PM weekdays and [phone] after 5 PM and weekends. Follow-up: With Dr. Romero documented in this encounter Progress Notes Kristofer Romero MD - 05/29/2020 1:00 PM EDT See other note from today documented in this encounter Plan of Treatment Not on filedocumented as of this encounter Procedures Procedure Name Priority Date/Time Associated Diagnosis Comme nts HC URINE CULTURE Routine 05/29/2020 2:00 PM Hematuria, Resul ts for this EDT unspecified type procedure a re in the results section. documented in this encounter Results Urine culture Clean Catch Urine (05/29/2020 2:00 PM EDT) [facility] Method Time Signature Urine Culture No growth YARI CHADWICK (Less than [facility] 1,000 [facility] cfu/ml). LABORATORY Specimen (Source) Anatomical Collection Method Collection Time Re ceived Time Location / / Volume Laterality Urine specimen 05/29/2020 2:00 05/29/2020 4:14 obtained by clean PM EDT PM EDT catch procedure (specimen) Resulting Agency Comment Spec In Lab Kristofer Romero MD MICROBIOLOGY - GENERAL ORDER FRANKI Performing Organization Address City/State/[place] [address] Cystoscopy (05/29/2020 9:50 AM EDT) Narrative Kristofer Romero MD - 05/29/2020 9:50 AM EDT Kristofer Romero MD ? 05/29/2020 ??1:47 PM Procedure: Flexible Cystoscopy Surgeon: Kristofer Romero Preoperative Diagnosis: Hemturia Post Operative Diagnosis: 2cm Bladder Ca ncer Left hemitrigone Complications: None Procedure: Urinalysis revealed no evidence of an ac tive urinary tract infection. After informed consent was obtained and the external genitalia appropriately cleaned and draped, lidoca ine was instilled into the urethra to achieve topical anaesthes ia. The flexible telescope was inserted into the urethra and advanced into the bladder under direct vision. Th e bladder was systematically inspected through 360 deg tatianna with the flexible telescope including retroversion. The anterior urethroscopy was normal. The prostatic fossa was normal. The right ureteral orifice was in normal position and effluxed clear urine. I was unable to see the lef t around the tumor The bladder was notable for a single ??2 cm Left hemitrigone tumor with substantial associated neovasculari ty . There were no other bladder tumors, mucosal abnormalities or bladder stones. The cystoscope was removed. The patient tolerated the procedure without difficulty. There were no compli cations. Kristofer Romero Kristofer Romero MD PROCEDURE ORDERABLES documented in this encounter Visit Diagnoses Diagnosis Bladder mass Other specified disorders of bladder Hematuria, unspecified type documented in this encounter Care Teams Bark Grinder Relationship Specialty Start Date End Date Kristofer Velasquez MD PCP - General Family Medicine 04/14/20 10/06/[address] [place] [address] documented as of this encounter
--- OUTSIDE RECORDS SUMMARY | 2022-02-12 00:58 | XMS_ITS | Clinical Summary ---
:1945 Author Organization [facility] [place] [address] Care Team Providers Name Role Phone Shamika Tiffanie HERNANDEZ Primary Care Provider Allergies Active Allergy Reactions Severity Noted Date Comments Adhesive Tape-Silicones Rash Low 12/10/2015 Blue Dye Other (See Comments) 07/20/2016 Blue co mc on medications giv es tickle in back of throat Cephalexin Monohydrate Other (See Comments) Medium 10/02/2020 Sertraline Diarrhea 07/09/2016 Sulfa (Sulfonamide CIS - Urt icaria Antibiotics) Medications Medication Sig Dispensed Refills Start Date End Date Status atorvastatin (Lipitor) Take 20 mg by 0 12/10/2015 Active 20 mg Tablet mouth Daily. apixaban (Eliquis) 5 mg Take 5 mg by 0 Active Tablet mouth 2 times daily. furosemide (Lasix) 40 mg Take 40 mg by 0 Active Tablet mouth daily. amLODIPine (Norvasc) 10 Take 10 mg by 0 Active mg Tablet mouth daily. metoprolol succinate XL Take 50 mg by 0 Active (Toprol-XL) 50 mg Tablet mouth daily. Sustained Release 24 hr aspirin EC 81 mg Tablet, Take 81 mg by 0 Active Delayed Release (E.C.) mouth daily. Garlic 1,000 mg Capsule Take 1,000 mg by 0 Active mouth daily. Active Problems Problem Noted Date Bladder mass 05/29/2020 Overview: Added automatically from request for bari leal [id number] Social History Tobacco Use Types Packs/Day Years Used Date Current Every Day Smoker Pipe Smokeless Tobacco: Never Used Sex Assigned at Date Recorded Not on file Last Filed Vital Signs Vital Sign Reading [...] Mass Index 32.28 05/29/2020 1:17 PM EDT Plan of Treatment Health Maintenance Due Date Last Done Comments Covid-19 Vaccine (#1) 02/13/1950 Pneumoccocal Vaccine: 65+ (1 - PCV) 1949 Hepatitis C Screening 1961 Tdap adult 1962 Tetanus vaccine 1962 Zoster vaccine (1 of 2) 1993 Advance Directive 1998 Influenza (Flu) vaccine (1 of 1 - Influenza standard 04/01/2022 series) Insurance Payer Benefit Plan / Subscriber ID Effective Phone Address T ype Group Dates MEDICARE MEDICARE PART A [id number] 2020-Pres [phone] [place] [address] AETNA MEDICARE AETNA MEDICARE [id number] 2019-Prese [address] [address] [place] [address] Advance Directives Documents on File Type Date Recorded Patient Photographer Finish Explanati on Personal Photographer Finish 05/30/2020 7:49 PM lachelle jessica (hollis) yonas Care Teams Resin Filterer Relationship Specialty Start Date End Date Tiffanie Wick APRN PCP - General Family Medicine 10/07/[address] [place] [address]
--- OUTSIDE RECORDS SUMMARY | 2022-02-12 00:58 | XMS_ITS | Encounter Summary ---
:1945 Author Organization [facility] Address [address] [place] [address] Care Team Providers Name Role Phone Unknown, Provider Primary Care Provider Encounter Details Date Type Department Care Team Description 08/07/2015 Results Only [facility], [address] [place], [place] [id number] (Wo rk) Social History Tobacco Use Types Packs/Day Years Used Date Never Assessed Sex Assigned at Date Recorded Not on file documented as of this encounter Plan of Treatment Not on filedocumented as of this encounter Procedures Procedure Name Priority Date/Time Associated Diagnosis Comme nts SURGICAL PATHOLOGY Routine 08/07/2015 16:24 Resul ts for this EST procedure are i n the results section. documented in this encounter Results SURGICAL PATHOLOGY (08/07/2015 16:24 EST) Pathology Report: SURGICAL PATHOLOGY REPORT [facility] MEDICA L Reports generated via electronic interface conta in original data; [facility] however they are lacking the format of the original re port. SERVICES Caution should be taken when reading/interpreting unfo rmatted reports. Name: ? AB ROTHMAN ? Accession #: ? [id number] ? : ? 1945 (Age: 5 2) ??M ? Collect Date: ? 08/07/2015 ? Location: ? [facility] ? Receive Date: ? 08/08/2015 ? Provider: BRYSON SUBRAMANIAN DO Copy to: KYRA YEPEZ MD ? Final Pathologic Diagnosis: A. ??SKIN OF SHOULDER, LEFT ANTERIOR, EXCISION: - Basal cell carcinoma, nodular type. - Margins negative for basal cell carcinoma. - Epidermal reparative change and dermal scar, consist ent with biopsy site. B. ??SKIN OF SHOULDER, LEFT ANTERIOR, DOG EAR AT 3 O'C LOCK, EXCISION: - Portion of skin with no histopathologic features. C. ??SKIN OF SHOULDER, LEFT ANTERIOR, DOG EAR AT 9 O'C LOCK, EXCISION: - Portion of skin with no histopathologic features. Microscopic Description: Irregularly shaped islands o f atypical basal cells infiltrate the dermis. ??The basal cells have scant cytoplasm and round dark nuclei. ??Mitotic figures and apoptotic bodies are evident . ??The nuclei at the periphery of the islands have a palisaded arrangement. ??The islands are associated with a fibromyxoid stroma and there is cleft formation bet ween some of the islands and stroma. ??(Dr. Hazel)/[facility] Document reviewed and electronically signed by: JAYA HAZEL MD Report ??Date: 08/11/2015 17:02 By the signature above, the attending physician certif ies that he/she has personally conducted a gross and/or microscopic examin ation of the described specimens and rendered or confirmed the above diagnosi s. Specimen(s) Received: A. ??L anterior shoulder basal cell carcinoma B. ??L anterior shoulder basal cell carcinoma dog ear at 3 o'clock C. ??L anterior shoulder basal cell carcinoma dog ear at 9 o'clock Clinical History: BCC, nodular; clinical diagnosis code: D49.2 Intraoperative Interpretation: A. ??SKIN, LEFT ANTERIOR SHOULDER, EXCISION: - Residual basal cell carcinoma. ??All margins negativ e for tumor. - FSA1. ??12 o'clock tip: ??Negative for tumor. ??Seborrheic keratosis change noted. - FSA2. ??6 o'clock tip: ??Negative for tumor. - FSA3+FSA4. ?? Cross sectio ns with 3 and 9 o'clock margins: ??Residual basal cell carcinoma. ??All margins negative for tumor. - FSA5. ??Cross section with 3 and 9 o'clock margins: ??Residual basal cell carcinoma. - A5 1-8 maloriented slides; reoriented tissue 5-9 and 5-10. - All margins negative in slides reviewed. - Discussed with Dr. Subramanian at 12:48 PM. ??Patien t identified prior to verbal report. ??Dr. Neva Cm Gross Description: A. ?Received fresh at 12 noon labelled with proper patient identification (initials M, R) and left anterior shoulder is a roun d portion of skin measuring 1.7 x 1.7 x 0.3 cm. The specimen is oriented with a white suture designating 3 o'clock, a blue suture dora ignating 6 o'clock, and a black suture designating 9 o'clock. The 12-3-6 o'cloc k margin is inked green and the 12-9-6 o'clock margin is inked black. The speci men is serially sectioned and entirely submitted for frozen section as FSA1 through FSA5 with the interpretations rendered as above. ??Section A5 was reoriented 180 degrees after sectioning: A5-1 to A5-8, A5-9 and A5-10 were from reoriented time. The specimen is entirely submitted for permanent sections as follows: BLOCK BOTELLO: A1- ??control for FSA1, 12 o'clock tip A2- ??control for FSA2, 6 o'clock tip A3- ??control for FSA3, cross sections with 3 and 9 o' clock margins A4- ??control for FSA4, cross sections with 3 and 9 o' clock margins A5- ??control for FSA5, cross section with 3 and 9 o'c lock margins B. ?Received in formalin labelled with proper p atient identification (initials M, R) and left anterior shoul myra basal cell carcinoma 3 o'clock dog ear is an unoriented triang ular excision of tong-white skin (0.9 x 0.8 cm and is excised to a depth of 0.5 cm). The margins are inked b lue. The specimen is serially sectioned and entirely submitted as soumya sette B1 central sections and cassette B2 tips, reverse en face. C. ?Received in formalin labelled with proper p atient identification (initials M, R) and left anterior shoul myra basal cell carcinoma 9 o'clock dog ear is an oriented triangular excision of tong-white s kin (0.9 x 0.7 cm and excised to a depth of 0.4 cm). The margins are inked b lue. The specimen is serially sectioned and entirely submitted as soumya sette C1 central sections and cassette C2 tips, reverse en face Dr. Cuellar 08/08/2015 7:38 PM End of Report Specimen Performing Organization Address City/State/ZIP Code Phon e Number [facility] [address] [place] [address] SERVICES documented in this encounter Visit Diagnoses Not on filedocumented in this encounter Care Teams Slab Grinder Relationship Specialty Start Date End Date Unknown, Provider, PCP - General 07/10/15 documented as of this encounter
--- NOTE | 2022-02-12 08:00 | DI.US_ITS ---
APPROVED REPORT EXAM: Comprehensive 2D, Doppler, and color-flow Echocardiogram Patient Location: Out-Patient Psychiatric Tech: Gege Zuluaga RDCS (AE) Indications: Aortic valve bioprosthetic, HTN, CAD Other Information Study Quality: Adequate Conclusion Borderline concentric left ventricular hypertrophy. Estimated ejection fraction is 60%. Wall motion is normal Right ventricular size and systolic function appear normal Both atria are normal in size There is a bioprosthetic aortic valve. There is mild aortic stenosis. Mean gradient is 32 mmHg. Th ere is trace aortic regurgitation. Mitral annular calcification with trace to mild regurgitation Dilated ascending aorta measuring 4.04 cm Wall motion Left Ventricle The left ventricle is normal size. The left ventricular systolic function is normal. The left ventric ular ejection fraction is within the normal range. Borderline concentric left ventricular hypertrophy . There is normal LV segmental wall motion. There is no ventricular septal defect visualized. LVEF is 59%. Right Ventricle Right ventricle is grossly normal in size. Right ventricular systolic function is grossly normal. Atria The left atrium size is normal. The right atrium size is normal. The interatrial septum is intact wit h no evidence for an atrial septal defect. Aortic Valve Mild aortic stenosis. Peak gradient is 51, mean 32 Trace aortic regurgitation. Bioprosthetic aortic v alve is present. Mitral Valve Mild mitral annular calcification. There is mitral annular calcification. No evidence of mitral valve stenosis. Trace to mild mitral regurgitation. Tricuspid Valve The tricuspid valve is normal in structure. There is no tricuspid valve stenosis. Trace tricuspid reg urgitation. Unable to assess PA pressure. Pulmonic Valve The pulmonary valve is normal in structure. There is no pulmonic valvular stenosis. There is no pulmo malachi valvular regurgitation. Great Vessels The aortic root is normal in size. The ascending aorta is moderately dilated.4.04 cm Aortic arch is n ot well visualized. IVC is normal in size and collapses >50% with inspiration. Pericardium There is no pericardial effusion. 2D Dimensions IVSD d PLAX 1.25 cm M: 0.6-1.2 LV Vol A2C d MOD 138.0 mL LVPW d PLAX 1.23 cm M: 0.6 - 1.2 LV Vol A4C d MOD 139.5 mL LVID d PLAX 4.40 cm M: 4.2 - 5.8 LA vol/ BSA A2C s A-L 25.2 mL/m2 LVDs 3.00 cm M: 2.5 - 4.0 LA vol/ BSA A4C s A-L 30.8 mL/m2 Ao Root d 2.90 cm M: 3.1 - 3.7 LA Vol/ BSA Biplane s A-L 29.0 mL/m2 RA Area A4C 16.22 cm2 LA Area A4C s MOD 21.28 cm2 RA Vol/ BSA A4C s A-L 21.7 mL/m2 LA Area A2C s MOD 18.51 cm2 Ao Asc Diam d 4.04 cm M: 2.6 - 3.4 LV EF A4C MOD 59.0 % LV EF Teichholz 60.0 % LV EF A2C MOD 57.9 % LVEF (Rodriguez's) 59.09 % M: 52 - 72 LV EF Biplane MOD 59.1 % LV Volume 106.88 mL M: 62 - 150 SV 85.12 mL LV Volume Index 51.88 mL/m2 M: 34 - 74 SV Index 41.19 mL/m2 LV Vol Biplane MOD 144.0 mL FS 31.75 % M-Mode TAPSE 1.83 cm (M/F) >1.7 LV Diastology MV E' medial 0.082 (>0.07 m/s) E/A Ratio 1.1 LV E/e MED 11.80 (<14) MV E Vmax 0.97 (0.4-1.3 m/s) MV E' lateral 0.094 (>0.1 m/s) MV A Vmax 0.85 (0.4-1.3 m/s) LV E/e LAT 10.30 (<14) MV E/A Ratio 1.10 MV E/E' medial 11.84 MV E/E' lateral 10.30 Aortic Valve LVOT Area 3.12 cm2 AoV Area Vmax 1.26 cm2 LVOT Vmax 1.50 m/s AoV Area/ BSA (Vmax) 0.61 cm2/m2 LVOT Mean Rishi. 1.00 m/s ALONDRA Mean Rishi. 1.15 cm2 LVOT Peak Grad 9.0 mmHg ALONDRA Mean Rishi. Index 0.56 cm2/m2 LVOT Mean Grad 4.7 mmHg LVOT VTI 0.332 m LVOT Diam s 1.95 cm AoV Vmax 3.72 m/s Velocity Ratio 0.40 AoV Mean Rishi. 2.72 m/s AoV Peak Grad 55.4 mmHg LVOT SV 103.56 mL AoV Mean Grad 32.7 mmHg AoV VTI 0.813 m AoV Area VTI 1.27 cm2 AoV Area/ BSA (VTI) 0.62 cm/m2 Mitral Valve MV DT 247 (160-240 msec) MV PHT 72 msec MV Area PHT 3.07 cm2 MV VTI 0.319 m MV Area VTI 3.25 (4.0-6.0 cm2) Pulmonary Valve PV Vmax 1.22 (0.5-1.5 m/s) RVOT Peak Gr. 3.06 mmHg PV Peak Grad 6.0 mmHg RVOT Mean Gr. 1.60 mmHg PV Mean Grad 3.6 mmHg RVOT VTI 0.199 m PV VTI 0.325 m RVOT Vmax 0.88 m/s
== END ==
PROVIDERS: PCP Nurse Practitioner Family; Visit Provider Internal Medicine Cardiovascular Disease
DX: I10 Essential (primary) hypertension (principal); I25.10 Atherosclerotic heart disease of native coronary artery without angina pectoris; Z95.3 Presence of xenogenic heart valve
CPT/HCPCS: 93306

== ENCOUNTER 2022-02-19 08:35 | Outpatient (CLI) | payer MEDICARE, OTHER, SELFPAY ==
--- NOTE | 2022-02-19 08:30 | RT.EKG_ITS ---
APPROVED REPORT Exam: Resting ECG Reason for Exam: CAD Patient Location: O HR:59 bpm ECG Measurements Heart Rate 59 AXIS MO 187 P 0 QRSd 120 QRS 24 QT 411 T 60 QTc 408 Conclusion Sinus rhythm...normal P axis, V-rate 50- 99 Nonspecific intraventricular conduction delay...QRSd >115mS, not LBBB/RBBB Anteroseptal infarct, old...Q >40mS, V1-V2
== END 2022-02-19 08:36 | disposition home or self-care (01) ==
LOC: DI.CARD 08:36
PROVIDERS: PCP Nurse Practitioner Family; Visit Provider Internal Medicine Cardiovascular Disease
DX: I25.10 Atherosclerotic heart disease of native coronary artery without angina pectoris (principal); R94.31 Abnormal electrocardiogram [ECG] [EKG]; I25.2 Old myocardial infarction
CPT/HCPCS: 93010

== ENCOUNTER → 2022-02-19 10:06 | Outpatient (BNVA) | payer MEDICARE, OTHER, SELFPAY | PROVIDERS: PCP Nurse Practitioner Family; Referring Provider Nurse Practitioner Family; Visit Provider Internal Medicine Cardiovascular Disease | DX: I25.10 Atherosclerotic heart disease of native coronary artery without angina pectoris (principal); I10 Essential (primary) hypertension; I48.0 Paroxysmal atrial fibrillation; I95.1 Orthostatic hypotension; I35.0 Nonrheumatic aortic (valve) stenosis; Z95.3 Presence of xenogenic heart valve | CPT/HCPCS: 93005; 99214; 99213 ==

== ENCOUNTER → 2022-04-08 02:10 | Outpatient (CLI) | payer MEDICARE, OTHER, SELFPAY ==
--- NOTE | 2022-04-08 14:33 | DI.CT_ITS ---
Exam(s) CT HEAD WO EXAM: CT HEAD WO CLINICAL HISTORY: new onset headache,r51.9. TECHNIQUE: Imaging Protocol: Axial computed tomography images with coronal and sagittal reformatted images were created and reviewed COMPARISON: CT CT HEAD WO from 01/15/2020 FINDINGS: Ventricles and Extra axial spaces: Normal in size and morphology for the patient's age. Hemorrhage: None. Cerebral parenchyma: Normal. No acute territorial infarct. Midline shift: None. Brainstem/Cerebellum: Normal. Calvarium: Normal. Visualized Paranasal sinuses/Mastoids: There is mild mucosal thickening in the ethmoid air cells bila terally. The remaining visualized paranasal sinuses are clear. No air-fluid levels are seen. The m astoid air cells are clear. Soft Tissues: Unremarkable. IMPRESSION: 1. No acute intracranial process. 2. Mild ethmoid sinus disease. RADIATION DOSE DELIVERED: 788.63mGy.cm Total DLP DATA REPOSITORY: All CT scans at this facility are submitted to the National Radiology Data Registry (NRDR) Dose Index Registry (DIR) with the [employer] (ACR). RADIATION OPTIMIZATION: All CT scans at this facility use at least one of these dose optimization te chniques: automated exposure control; mA and/or kV adjustment per patient size (includes targeted exa ms where dose is matched to clinical indication); or iterative reconstruction.
== END ==
PROVIDERS: PCP Nurse Practitioner Family; Visit Provider Nurse Practitioner Family
DX: R51.9 Headache, unspecified (principal); J32.2 Chronic ethmoidal sinusitis
CPT/HCPCS: 70450

== ENCOUNTER 2022-05-03 12:38 | Emergency (ER) | payer MEDICARE, OTHER, SELFPAY ==
[2022-05-03] VITALS (36 sets, daily range): BP systolic 130–167; BP diastolic 59–81; PULSE 48–69; RESP 9–21; TEMP 36.8; O2SAT 89–100
--- NOTE | 2022-05-03 12:45 | RT.EKG_ITS ---
APPROVED REPORT Exam: Resting ECG Reason for Exam: lightheadedness Patient Location: E HR:53 bpm ECG Measurements Heart Rate 53 AXIS AZ 212 P 49 QRSd 91 QRS 31 QT 467 T 65 QTc 437 Conclusion Sinus bradycardia...rate< 60 Borderline prolonged AZ interval...AZ >212, V-rate 50- 90 Anterior infarct, old...Q >40mS, abnormal ST-T, V2-V5 sinus bradycardia 53, normal axis, anteroseptal Q waves, no STEMI, nondiagnostic EKG
--- NOTE | 2022-05-03 14:30 | DI.RAD_ITS ---
Exam(s) XR PORTABLE CHEST AP EXAM: XR PORTABLE CHEST AP CLINICAL HISTORY: near syncope TECHNIQUE: 2D digital imaging was performed. COMPARISON: No exams were available for comparison FINDINGS: LUNGS: Clear. No pleural abnormality seen. HEART: Enlarged. Aortic valve prosthesis. Status post CABG. AORTA: Normal. BONES: Unremarkable for age. Soft tissues: Unremarkable. IMPRESSION: No acute findings. DATA REPOSITORY: RADIATION DOSE DELIVERED:
--- NOTE | 2022-05-03 14:54 | ED.GENADUL_ITS ---
Discharge Plan Disposition Patient Disposition: STILL A PATIENT Condition: Good Discharge Details Chief Complaint: Dizzy/Sync Clinical Impression: Intermittent lightheadedness, Hematuria Primary Care Provider: Tiffanie Wick ED Provider: Lori Bunn Home Meds and New Rx's Prescriptions: No Action aspirin [Adult Aspirin Regimen] 81 mg tablet,delayed release (DR/EC) 81 mg PO DAILY triamcinolone acetonide 0.1 % cream 1 applic TP BID Qty: 30 2RF amlodipine 10 mg tablet 10 mg PO DAILY Qty: 90 4RF Eliquis 5 mg tablet 5 mg PO BID Qty: 180 4RF atorvastatin 20 mg tablet 20 mg PO DAILY Qty: 90 4RF metoprolol succinate 50 mg tablet extended release 24 hr 50 mg PO DAILY Qty: 90 4RF garlic 1 EACH capsule 1 ea PO DAILY Label Comments: 08/06/16 Has not taken since surgery; unsure if they will restart. LR gabapentin 600 mg tablet 300 mg PO BID Qty: 90 4RF Rx Instructions: Take half a tablet twice a day furosemide 20 mg tablet 20 mg PO DAILY Qty: 90 3RF Medical Decision Making Concern for arrhythmia, metabolic/electrolyte derangement, worsening valvular disease, other. Less likely ACS, pulmonary embolism. Exam/history at this time is not consistent with acute aortic pathology, sepsis, acute cerebrovascular accident. EKG obtained and nondiagnostic. Plan for IV placement, screening labs, chest x-ray. Will discuss with cardiology. I discussed patient presentation with Dr. Langley of cardiology. I requested that patient have outpatient echocardiogram performed, Dr. Webster in agreement and stated that she would be the provider to read this study and would follow-up as necessary. She also recommended cardiac event monitor, 14 days or longer. Labs reviewed, troponin negative, D-dimer negative, anion gap 6.0, TSH 0.77. 30-day event monitor ordered and placed by respiratory therapy. Outpatient echocardiogram ordered. Awaiting repeat troponin. Patient remains asymptomatic. Patient signed out to Dr. Murguia at time of shift change with repeat troponin pending. Medical Records Medical records reviewed: Yes I reviewed the patient's medical records. Imaging Data Radiologic Study: Attestation: I personally reviewed and interpreted this imaging study as follows: Radiologist's impression: EXAM:? XR PORTABLE CHEST AP CLINICAL HISTORY:? near syncope TECHNIQUE:? 2D digital imaging was performed. COMPARISON:? No exams were available for comparison FINDINGS: LUNGS: Clear. No pleural abnormality seen. HEART: Enlarged.? Aortic valve prosthesis.? Status post CABG. AORTA: Normal. BONES: Unremarkable for age.? Soft tissues: Unremarkable. IMPRESSION: No acute? findings. Lab Data Lab results reviewed: Yes I reviewed the patient's lab results. Labs: Laboratory Tests Range/Units 05/03/22 05/03/22 05/03/22 14:52 14:52 14:52 WBC (4.4-10.8) 10^3/uL 6.88 RBC (4.36-5.78) 10^6/uL 5.39 Hgb (13.5-17.5) g/dL 16.1 Hct (40.0-50.0) % 48.7 MCV (80-95) fL 90 MCH (27.0-33.0) pg 29.9 MCHC (32.0-36.0) % 33.1 RDW (11.8-14.1) % 12.6 Plt Count (130-400) 10^3/uL 163 MPV (8.0-11.0) fL 10.3 Immature Gran % 0.3 Neutrophils % 58.0 Lymphocytes % 29.8 Monocytes % 8.7 Eosinophils % 2.5 Basophils % 0.7 Nucleated RBC % (0.0-0.3) % 0.0 Absolute Neutrophils (1.2-6.7) 10^3/uL 3.99 Absolute Lymphocytes (1.2-3.4) 10^3/uL 2.05 Absolute Monocytes (0.1-0.8) 10^3/uL 0.60 Absolute Eosinophils (0.0-0.7) 10^3/uL 0.17 Absolute Basophils (0.0-0.2) 10^3/uL 0.05 D-Dimer (<500) ng/mlFEU 287 Sodium (136-145) mmol/L 140 Potassium (3.5-5.1) mmol/L 3.6 Chloride (98-107) mmol/L 103 Carbon Dioxide (21.0-32.0) mmol/L 31.0 Anion Gap (3-11) mmol/L 6.0 BUN (7-18) mg/dL 13 Creatinine (0.70-1.30) mg/dL 0.9 Est GFR (CKD-EPI 2020) (mL/min/1.73m2) 86.88 Glucose (74-106) mg/dL 93 Calcium (8.5-10.1) mg/dL 9.0 Magnesium (1.8-2.4) mg/dL 2.1 Total Bilirubin (0.2-1.0) mg/dL 0.7 AST (15-37) U/L 25 ALT (16-63) U/L 39 Alkaline Phosphatase (46-116) U/L 103 Troponin I (<or=60) ng/L < 50 Total Protein (6.4-8.2) g/dL 7.8 Albumin (3.4-5.0) g/dL 4.0 TSH (0.36-3.74) uIU/mL 0.77 Urine Color (Yellow) Urine Clarity (Clear) Urine pH (5-8) Ur Specific [place] (1.005-1.025) Urine Protein (Negative) mg/dL Urine Ketones (Negative) mg/dL Urine Blood (Negative) Urine Nitrite (Negative) Urine Bilirubin (Negative) Urine Urobilinogen (Up TO 0.2) EU/dL Ur Leukocyte Esterase (Negative) Urine RBC (0-2) HPF Urine WBC (0-5) HPF Ur Epithelial Cells (Negative) HPF Urine Crystals (Negative) HPF Urine Bacteria (Negative) HPF Urine Casts (Negative) LPF Urine Mucus (Negative) Ur Culture Indicated? Urine Glucose (Negative) mg/dL Range/Units 05/03/22 14:53 WBC (4.4-10.8) 10^3/uL RBC (4.36-5.78) 10^6/uL Hgb (13.5-17.5) g/dL Hct (40.0-50.0) % MCV (80-95) fL MCH (27.0-33.0) pg MCHC (32.0-36.0) % RDW (11.8-14.1) % Plt Count (130-400) 10^3/uL MPV (8.0-11.0) fL Immature Gran % Neutrophils % Lymphocytes % Monocytes % Eosinophils % Basophils % Nucleated RBC % (0.0-0.3) % Absolute Neutrophils (1.2-6.7) 10^3/uL Absolute Lymphocytes (1.2-3.4) 10^3/uL Absolute Monocytes (0.1-0.8) 10^3/uL Absolute Eosinophils (0.0-0.7) 10^3/uL Absolute Basophils (0.0-0.2) 10^3/uL D-Dimer (<500) ng/mlFEU Sodium (136-145) mmol/L Potassium (3.5-5.1) mmol/L Chloride (98-107) mmol/L Carbon Dioxide (21.0-32.0) mmol/L Anion Gap (3-11) mmol/L BUN (7-18) mg/dL Creatinine (0.70-1.30) mg/dL Est GFR (CKD-EPI 2020) (mL/min/1.73m2) Glucose (74-106) mg/dL Calcium (8.5-10.1) mg/dL Magnesium (1.8-2.4) mg/dL Total Bilirubin (0.2-1.0) mg/dL AST (15-37) U/L ALT (16-63) U/L Alkaline Phosphatase (46-116) U/L Troponin I (<or=60) ng/L Total Protein (6.4-8.2) g/dL Albumin (3.4-5.0) g/dL TSH (0.36-3.74) uIU/mL Urine Color (Yellow) Yellow Urine Clarity (Clear) Clear Urine pH (5-8) 7.0 Ur Specific [place] (1.005-1.025) 1.010 Urine Protein (Negative) mg/dL Negative Urine Ketones (Negative) mg/dL Negative Urine Blood (Negative) Moderate H Urine Nitrite (Negative) Negative Urine Bilirubin (Negative) Negative Urine Urobilinogen (Up TO 0.2) EU/dL 0.2 Ur Leukocyte Esterase (Negative) Negative Urine RBC (0-2) HPF 10-20 H Urine WBC (0-5) HPF Negative Ur Epithelial Cells (Negative) HPF Rare Urine Crystals (Negative) HPF Negative Urine Bacteria (Negative) HPF Negative Urine Casts (Negative) LPF Negative Urine Mucus (Negative) Negative Ur Culture Indicated? No Urine Glucose (Negative) mg/dL Negative ECG Data Attestation: I personally reviewed and interpreted this ECG (s) as follows: Interpretation: EKG shows sinus bradycardia 53, normal axis, anteroseptal Q waves, no STEMI, nondiagnostic EKG HPI General Mode of arrival: ambulatory . Date/Time Provider Initiated Documentation: 05/03/22 12:47 . Limitations to Documentation: no limitations . Information obtained by: patient, family, RN notes reviewed and old records reviewed . HPI Narrative: Rosas Kaplan is a 77 y/o man history of coronary artery disease, paroxysmal atrial fibrillation, hypertension, hyperlipidemia, peripheral neuropathy, status post aortic valve replacement, status post CABG presenting to the emergency department with episodes of lightheadedness. Patient reports that he has had headaches almost every day since receiving his first COVID-vaccine 1.5 years ago. Patient reports that he had a head CT for this ordered by his PCP 1 month ago that was negative. Patient reports that he does not currently have a headache and has had no change in headaches over time. Patient reports that he has been having intermittent episodes of lightheadedness for the past 2 months or so. He reports that sometimes these episodes occur while he is standing and sometimes when he is sitting. He reports that during these episodes he feels that his vision becomes blurry and he feels lightheaded. His reports that at 1 point his legs buckled during an episode. Patient reports that episodes last for seconds at a time (less than 10 seconds). Patient reports that he has never fainted or lost consciousness from 1 of these episodes. He denies vertigo. Patient reports that his appetite has been normal and he has been eating and drinking as usual. He denies any other symptoms. He denies pain, fever, cough, shortness of breath, vomiting, diarrhea, numbness, weakness, rash, swelling. Patient states that he has been taking all of his medications as prescribed. He states that there has been no change in episodes of lightheadedness over the past 2 months, not worsening, increasing in frequency. He states that he will sometimes have 2 episodes a day, sometimes will not have an episode for a week. Patient reports that he had 2 episodes yesterday and thus called his PCP this morning to be seen. They sent him to the emergency department, and he states that that is why he presented here today. Related Data Home Medications Medication Instructions Recorded Confirmed garlic 1 ea PO DAILY 08/20/15 05/03/22 aspirin 81 mg tablet,delayed 81 mg PO DAILY 11/22/18 05/03/22 release (Adult Aspirin Regimen) triamcinolone acetonide 0.1 % 1 applic topical BID #30 grams 05/24/19 05/03/22 topical cream amlodipine 10 mg tablet 10 mg PO DAILY #90 tab-caps 06/12/21 05/03/22 apixaban 5 mg tablet (Eliquis) 5 mg PO BID #180 tabs 06/12/21 05/03/22 atorvastatin 20 mg tablet 20 mg PO DAILY #90 tabs 06/12/21 05/03/22 metoprolol succinate 50 mg 50 mg PO DAILY Hypertension #90 06/12/21 05/03/22 tablet,extended release 24 hr tabs gabapentin 600 mg tablet 300 mg PO BID #90 tabs 01/08/22 05/03/22 furosemide 20 mg tablet 20 mg PO DAILY #90 tab-caps 04/20/22 05/03/22 Previous Rx's Medication Instructions Recorded triamcinolone acetonide 0.1 % 1 applic topical BID #30 grams 05/24/19 topical cream amlodipine 10 mg tablet 10 mg PO DAILY #90 tab-caps 06/12/21 apixaban 5 mg tablet (Eliquis) 5 mg PO BID #180 tabs 06/12/21 atorvastatin 20 mg tablet 20 mg PO DAILY #90 tabs 06/12/21 metoprolol succinate 50 mg 50 mg PO DAILY Hypertension #90 06/12/21 tablet,extended release 24 hr tabs gabapentin 600 mg tablet 300 mg PO BID #90 tabs 01/08/22 furosemide 20 mg tablet 20 mg PO DAILY #90 tab-caps 04/20/22 Allergies Allergy/AdvReac Type Severity Reaction Status Date / Time adhesive Allergy Intermediate redness, Verified 05/03/22 12:58 burning sensation, blisters blue dye Allergy Verified 05/03/22 12:58 cephalexin monohydrate AdvReac Intermediate diarrhea Verified 05/03/22 12:58 [From Keflex] General Stated Complaint: Dizzy/Sync [place]: 3 Review of Systems Narrative: Constitutional: denies fevers Eyes: denies eye pain ENT: denies ear pain, dental pain, sore throat Cardiovascular: denies chest pain, edema Respiratory: denies SOB, cough GI: denies abdominal pain, vomiting, diarrhea : denies flank pain MSK: denies back pain, neck pain, arthralgias, myalgias Skin: denies rash Neuro: denies numbness, weakness, reports chronic frequent headaches not currently occurring PFSH All Active Problems Intermittent lightheadedness (Acute) Hematuria (Acute) Headache (Acute) Orthostatic hypotension (Acute) Coronary artery disease (Chronic) S/p CABG x 1 (COREAS to LAD) 2015 Paroxysmal atrial fibrillation (Chronic) Obstructive sleep apnea (Chronic) Moderate to severe on PSG in 11/29/2015. Declined CPAP Essential hypertension (Chronic) Hyperlipidemia (Chronic) Bladder mass (Chronic) Noted on CTU 05/20, referred to [facility] [place] but declined 06/20. Declines further management Peripheral edema (Chronic) Prediabetes (Chronic) Obesity (Chronic) Sensorineural hearing loss, bilateral (Chronic) Peripheral neuropathy (Chronic) Essential tremor (Chronic) BPH loc w urin obs/LUTS (Acute) Pipe smoker (Chronic) Medical History Aortic stenosis S/p AVR Surgical History History of aortic valve replacement with bioprosthetic valve (07/20/16) S/P CABG x 1 (07/20/16) Family History Mother Heart disease Myocardial infarction Father Bone cancer Brother No problems noted. Brother COPD (chronic obstructive pulmonary disease) Brother No problems noted. Sister No problems noted. Maternal Grandfather No problems noted. Maternal Grandmother No problems noted. Paternal Grandfather No problems noted. Paternal Grandmother No problems noted. Social History Smoking/Tobacco Use Status: Current every day Tobacco Type: pipe Smoking risk assessment performed?: Yes Alcohol Intake: current Alcohol Intake frequency: a few times a week Drug use: Never Substance use type: does not use Do you feel safe at home: Yes Do you feel safe in your relationship?: Yes Exam Narrative Exam Narrative: Constitutional: well and [id number], pleasant, conversing normally HENT: head atraumatic/normocephalic/normal inspection, mucous membranes moist Eyes: conjunctiva normal, sclera normal, pupils 3mm b/l Neck: no stridor, normal ROM, trachea midline Chest: normal inspection Resp: normal work of breathing, LCTAB Cardio: normal rate, normal rhythm, 3/6 systolic murmur at right sternal border GI: abdomen soft, non-tender, non-distended Back: normal inspection, no rash Skin: warm, dry, normal color, no rash Neuro: alert, not altered, grossly non-focal, normal tone Ext: no edema Psych: normal mood, normal affect, normal behavior Course Vital Signs Vital signs: Vital Signs Temperature 36.8 C 05/03/22 12:52 Pulse 51 L 05/03/22 12:52 Respiratory Rate 18 05/03/22 12:52 Blood Pressure 148/69 H 05/03/22 12:52 Pulse Oximetry 96 05/03/22 12:52 Temperature 36.8 C 05/03/22 12:52 Temperature Source Temporal Artery Scan 05/03/22 12:52 Pulse 58 L 05/03/22 14:16 Pulse 62 05/03/22 14:16 Respiratory Rate 14 05/03/22 14:16 Respiratory Effort Non-Labored 05/03/22 12:54 Respiratory Depth Normal 05/03/22 12:54 Respiratory Pattern Normal 05/03/22 12:54 Blood Pressure 155/81 H 05/03/22 14:16 Blood Pressure Mean 100 05/03/22 14:16 Blood Pressure Position Sitting 05/03/22 12:52 Pulse Oximetry 99 05/03/22 14:10 Oxygen Delivery Method Room Air 05/03/22 12:52 Oxygen Flow Rate 0 05/03/22 12:52 Pain Level 0 05/03/22 12:52 PAWSS Have you Been Recently Intoxicated or Drunk Within the Last 30 days?: No Have you Ever Experienced Previous Episodes of Alcohol Withdrawal?: No Have you ever Experienced Withdrawal Seizures?: No Have you ever Experienced Delirium Tremens(DT)s?: No Have you ever undergone Alcohol Rehabilitation Treatment (i.e, inpt ot outpatient treatment programs)?: No Have you ever Experienced Blackouts?: No Have you ever Combined Alcohol with other Downers within the last 90 days?: No Have you ever Combined Alcohol with any other Substance of Abuse during the last 90 days?: No Result: 0
[2022-05-03 15:03] LABS: Abs Immature Grans 0.02 10^3/uL (0.0-0.06); Absolute Basophil Count 0.05 10^3/uL (0.0-0.2); Absolute Eosinophil Count 0.17 10^3/uL (0.0-0.7); Absolute Lymphocyte Count 2.05 10^3/uL (1.2-3.4); Absolute Neutrophil Count 3.99 10^3/uL (1.2-6.7); Basophils % 0.7; Eosinophils % 2.5; HCT 48.7 % (40.0-50.0); HGB 16.1 g/dL (13.5-17.5); Immature Grans % 0.3; Lymphocytes % 29.8; MCH 29.9 pg (27.0-33.0); MCHC 33.1 % (32.0-36.0); MCV 90 fL (80-95); MPV 10.3 fL (8.0-11.0); Monocytes % 8.7; Platelet Count 163 10^3/uL (130-400); RBC 5.39 10^6/uL (4.36-5.78); RDW 12.6 % (11.8-14.1); RDW-SD 41.8 fL; WBC 6.88 10^3/uL (4.4-10.8)
[2022-05-03 15:12] LABS: Bilirubin Negative (Negative); Blood Moderate (Negative); Clarity Clear (Clear); Glucose Negative (Negative); Ketones Negative (Negative); Leukocyte Esterase Negative (Negative); Nitrite Negative (Negative); Urobilinogen 0.2 EU/dL (Up TO 0.2)
[2022-05-03 15:18] LABS: Bacteria Negative HPF (Negative); C & S Indicated? No; Casts Negative LPF (Negative); Crystals Negative HPF (Negative); Epithelial Cells Rare HPF (Negative); Mucus Negative (Negative); WBC Negative HPF (0-5)
[2022-05-03 15:28] LABS: ALT 39 U/L (16-63); AST 25 U/L (15-37); Alkaline Phosphatase 103 U/L (46-116); BUN 13 mg/dL (7-18); Bilirubin, Total 0.7 mg/dL (0.2-1.0); CREATININE 0.9 mg/dL (0.70-1.30); Chloride 103 mmol/L (98-107); Estimated GFR 86.88 (mL/min/1.73m2); Glucose 93 mg/dL (74-106); Magnesium 2.1 mg/dL (1.8-2.4); Potassium 3.6 mmol/L (3.5-5.1); Sodium 140 mmol/L (136-145); TSH (W/Ref FT4) 0.77 uIU/mL (0.36-3.74); Total Protein 7.8 g/dL (6.4-8.2); Troponin I < 50 ng/L (<or=60)
[2022-05-03 15:38] LABS: D-Dimer 287 ng/mlFEU (<500)
[2022-05-03 18:06] LABS: Troponin I < 50 ng/L (<or=60)
== END 2022-05-03 17:42 | disposition still patient (30) ==
PROVIDERS: Emergency Provider Student in an Organized Health Care Education/Training Program; PCP Nurse Practitioner Family
DX: R42 Dizziness and giddiness (principal); R31.9 Hematuria, unspecified; I10 Essential (primary) hypertension; R00.1 Bradycardia, unspecified; I25.10 Atherosclerotic heart disease of native coronary artery without angina pectoris; Z95.1 Presence of aortocoronary bypass graft; Z95.2 Presence of prosthetic heart valve; F17.290 Nicotine dependence, other tobacco product, uncomplicated
CPT/HCPCS: 80053; 93005; 93270; 99284; 71045; 81003; 81015; 83735; 84443; 84484; 85025; 85379; 93010

== ENCOUNTER → 2022-05-13 01:45 | Outpatient (CLI) | payer MEDICARE, OTHER, SELFPAY ==
--- NOTE | 2022-05-13 12:55 | DI.US_ITS ---
APPROVED REPORT EXAM: Comprehensive 2D, Doppler, and color-flow Echocardiogram Patient Location: Out-Patient Final Assembly Worker: Gege Zuluaga RDCS (AE) Indications: Intermittent lightheadedness, Bioprosthetic aortic valve Other Information Study Quality: Adequate. Technically limited study due to body habitus. Conclusion Borderline concentric left ventricular hypertrophy. Estimated ejection fraction is 55 to 60%. Wall motion is normal Right ventricle appears normal in size and systolic function Both atria are normal in size There is a bioprosthetic aortic valve. Peak gradient is 66, mean 46 with a calculated aortic valve a nathaniel of 0.87 cm??. There is trace aortic regurgitation Mild mitral annular calcification. Trace to mild mitral regurgitation Normal tricuspid valve with trace regurgitation Dilated ascending aorta Compared to an echocardiogram from January, aortic valve gradients have increased considerably, now evid ence of severe aortic stenosis Wall motion Left Ventricle The left ventricle is normal size. The left ventricular systolic function is normal. The left ventric ular ejection fraction is within the normal range. Borderline concentric left ventricular hypertrophy . There is normal LV segmental wall motion. There is no ventricular septal defect visualized. LVEF is 55-60%. Right Ventricle Right ventricle is grossly normal in size. Right ventricular systolic function is grossly normal. Atria The left atrium size is normal. The right atrium size is normal. The interatrial septum is intact wit h no evidence for an atrial septal defect. Aortic Valve Severe aortic stenosis. Peak aortic valve gradient is 64mmHg. Highest mean aortic valve gradient is 4 4.6mmHg. Calculated ALONDRA by the continuity equation is 0.87 cm2. Trivial aortic regurgitation. Biopros thetic aortic valve is present. Mitral Valve Mild mitral annular calcification. No evidence of mitral valve stenosis. Trace to mild mitral regurgi tation. Tricuspid Valve The tricuspid valve is normal in structure. There is no tricuspid valve stenosis. Trace tricuspid reg urgitation. Pulmonic Valve The pulmonary valve is normal in structure. There is no pulmonic valvular stenosis. Trace pulmonic re gurgitation. Great Vessels The aortic root is normal in size. The ascending aorta is mildly dilated. Aortic arch is not well vis ualized. IVC is normal in size and collapses >50% with inspiration. Pericardium There is no pericardial effusion. 2D Dimensions IVSD d PLAX 1.22 cm M: 0.6-1.2 LV Vol A2C d MOD 134.0 mL LVPW d PLAX 1.24 cm M: 0.6 - 1.2 LV Vol A4C d MOD 124.8 mL LVID d PLAX 4.56 cm M: 4.2 - 5.8 LV EF A4C MOD 55.3 % LVDs 3.20 cm M: 2.5 - 4.0 LV EF A2C MOD 55.2 % Ao Root d 2.92 cm M: 3.1 - 3.7 LV EF Biplane MOD 55.7 % RA Area A4C 15.55 cm2 SV 73.93 mL RA Vol/ BSA A4C s A-L 21.1 mL/m2 SV Index 36.96 mL/m2 Ao Asc Diam d 3.93 cm M: 2.6 - 3.4 LV EF Teichholz 55.7 % LVEF (Rodriguez's) 55.67 % M: 52 - 72 LV Volume 99.59 mL M: 62 - 150 LV Volume Index 49.79 mL/m2 M: 34 - 74 LV Vol Biplane MOD 132.8 mL FS 28.85 % M-Mode TAPSE 1.86 cm (M/F) >1.7 LV Diastology MV E' medial 0.044 (>0.07 m/s) E/A Ratio 1.3 LV E/e MED 18.85 (<14) MV E Vmax 0.83 (0.4-1.3 m/s) MV E' lateral 0.038 (>0.1 m/s) MV A Vmax 0.65 (0.4-1.3 m/s) LV E/e LAT 21.65 (<14) MV E/A Ratio 1.23 MV E/E' medial 18.85 MV E/E' lateral 21.66 Aortic Valve LVOT Area 3.64 cm2 AoV Area Vmax 0.73 cm2 LVOT Vmax 0.81 m/s AoV Area/ BSA (Vmax) 0.37 cm2/m2 LVOT Mean Rishi. 0.56 m/s ALONDRA Mean Rishi. 0.64 cm2 LVOT Peak Grad 2.6 mmHg ALONDRA Mean Rishi. Index 0.32 cm2/m2 LVOT Mean Grad 1.5 mmHg AR DT 1668 msec LVOT VTI 0.250 m AR PHT 484 msec LVOT Diam s 2.15 cm AoV Vmax 4.00 m/s Velocity Ratio 0.20 AoV Mean Rishi. 3.21 m/s AoV Peak Grad 64.0 mmHg LVOT SV 91.08 mL AoV Mean Grad 44.6 mmHg AoV VTI 1.045 m AoV Area VTI 0.87 cm2 AoV Area/ BSA (VTI) 0.44 cm/m2 Mitral Valve MV DT 258 (160-240 msec) MV PHT 75 msec MV Area PHT 2.94 cm2 MV VTI 0.398 m MV Area VTI 2.29 (4.0-6.0 cm2) Pulmonary Valve PV Vmax 0.90 (0.5-1.5 m/s) RVOT Peak Gr. 1.84 mmHg PV Peak Grad 3.2 mmHg RVOT Mean Gr. 1.15 mmHg PV Mean Grad 1.9 mmHg RVOT VTI 0.158 m PV VTI 0.188 m RVOT Vmax 0.68 m/s
== END ==
PROVIDERS: PCP Nurse Practitioner Family; Visit Provider Student in an Organized Health Care Education/Training Program
DX: I95.1 Orthostatic hypotension (principal); R42 Dizziness and giddiness; I25.10 Atherosclerotic heart disease of native coronary artery without angina pectoris; Z95.3 Presence of xenogenic heart valve; I34.0 Nonrheumatic mitral (valve) insufficiency
CPT/HCPCS: 93306

== ENCOUNTER → 2022-05-20 10:12 | Outpatient (BNVA) | payer MEDICARE, OTHER, SELFPAY | PROVIDERS: PCP Nurse Practitioner Family; Referring Provider Nurse Practitioner Family; Visit Provider Internal Medicine Cardiovascular Disease | DX: I25.810 Atherosclerosis of coronary artery bypass graft(s) without angina pectoris (principal); Z95.3 Presence of xenogenic heart valve; I48.0 Paroxysmal atrial fibrillation; I35.0 Nonrheumatic aortic (valve) stenosis | CPT/HCPCS: 99214 ==

== ENCOUNTER 2022-05-21 01:53 | Outpatient (CLI) | payer MEDICARE, OTHER, SELFPAY ==
[2022-05-21 15:11] LABS: HCT 43.1 % (40.0-50.0); HGB 14.5 g/dL (13.5-17.5); MCH 30.1 pg (27.0-33.0); MCHC 33.6 % (32.0-36.0); MCV 90 fL (80-95); MPV 10.4 fL (8.0-11.0); Platelet Count 151 10^3/uL (130-400); RBC 4.81 10^6/uL (4.36-5.78); RDW 12.6 % (11.8-14.1); RDW-SD 41.6 fL; WBC 8.71 10^3/uL (4.4-10.8)
[2022-05-21 15:23] LABS: INR 1.1 (0.9-1.1); PTT Activated 27.8 sec (21.0-27.5)
[2022-05-21 15:52] LABS: Anion Gap 8.3 mmol/L (3-11); BUN 19 mg/dL (7-18); CO2 25.7 mmol/L (21.0-32.0); CREATININE 1.1 mg/dL (0.70-1.30); Calcium 8.7 mg/dL (8.5-10.1); Chloride 104 mmol/L (98-107); Estimated GFR 68.29 (mL/min/1.73m2); Glucose 103 mg/dL (74-106); Potassium 3.8 mmol/L (3.5-5.1); Sodium 138 mmol/L (136-145)
== END 2022-05-21 01:54 | disposition home or self-care (01) ==
LOC: LBO 01:53
PROVIDERS: PCP Nurse Practitioner Family; Visit Provider Internal Medicine Cardiovascular Disease
DX: I35.0 Nonrheumatic aortic (valve) stenosis (principal)
CPT/HCPCS: 36415; 80048; 85027; 85610; 85730

== ENCOUNTER 2022-05-24 21:04 | Outpatient (REF) | payer MEDICARE, OTHER, SELFPAY ==
[2022-05-24 21:01] LABS: Bilirubin Negative (Negative); Blood Large (Negative); Clarity Sl Cloudy (Clear); Glucose Negative (Negative); Ketones Negative (Negative); Leukocyte Esterase Negative (Negative); Nitrite Negative (Negative); Specific Gravity 1.025 (1.005-1.025); Urobilinogen 0.2 EU/dL (Up TO 0.2)
[2022-05-24 21:07] LABS: C & S Indicated? C&S Done As Ordered; RBC >50 HPF (0-2)
== END 2022-05-24 21:05 | disposition home or self-care (01) ==
LOC: LBN 21:04
PROVIDERS: PCP Nurse Practitioner Family; Visit Provider Nurse Practitioner Family
DX: R30.0 Dysuria (principal); R31.9 Hematuria, unspecified; N32.89 Other specified disorders of bladder; D49.4 Neoplasm of unspecified behavior of bladder
CPT/HCPCS: 81003; 81015; 87086

== ENCOUNTER 2022-06-07 08:11 | Outpatient (CLI) | payer MEDICARE, OTHER, SELFPAY ==
--- NOTE | 2022-06-07 11:58 | W.CARDEVENT ---
Date of service: 06/07/22 Time of Service: 11:58 Cardiac Event Recorder Referring Provider:: Tiffanie Wick Indications:: Dizziness Cardiac Event Note: This is a 30-day cardiac event recorder Predominant rhythm was sinus with an first-degree AV block and an average heart rate overall of 66. Minimum was 55, maximum 105 There was intermittent atrial fibrillation. Heart rate while in atrial fibrillation was on average 79 There was one 10 beat run of nonsustained ventricular tachycardia 1 pause measuring 3.1 seconds was recorded. It appeared to correlate with atrial fibrillation converting back to sinus rhythm No specific patient's symptoms were reported
== END 2022-06-07 08:12 | disposition home or self-care (01) ==
LOC: CARDOPNVT 08:11
PROVIDERS: PCP Nurse Practitioner Family; Visit Provider Internal Medicine Cardiovascular Disease
DX: R55 Syncope and collapse (principal); I47.20 Ventricular tachycardia, unspecified; I48.91 Unspecified atrial fibrillation
CPT/HCPCS: 93272

== ENCOUNTER 2023-01-24 03:17 | Outpatient (CLI) | payer MEDICARE, SELFPAY ==
[2023-01-24 07:40] LABS: Abs Immature Grans 0.03 10^3/uL (0.0-0.06); Absolute Basophil Count 0.05 10^3/uL (0.0-0.2); Absolute Eosinophil Count 0.17 10^3/uL (0.0-0.7); Absolute Lymphocyte Count 1.66 10^3/uL (1.2-3.4); Absolute Monocyte Count 0.67 10^3/uL (0.1-0.8); Absolute Neutrophil Count 5.32 10^3/uL (1.2-6.7); Basophils % 0.6; Eosinophils % 2.2; HCT 47.1 % (40.0-50.0); HGB 15.7 g/dL (13.5-17.5); Immature Grans % 0.4; MCH 29.8 pg (27.0-33.0); MCHC 33.3 % (32.0-36.0); MCV 90 fL (80-95); MPV 9.6 fL (8.0-11.0); Monocytes % 8.5; Neutrophils % 67.3; Platelet Count 153 10^3/uL (130-400); RBC 5.26 10^6/uL (4.36-5.78)
[2023-01-24 08:01] LABS: Hemoglobin A1C 5.8 % (<5.7)
[2023-01-24 08:11] LABS: ALT 43 U/L (16-63); AST 30 U/L (15-37); Albumin 3.7 g/dL (3.4-5.0); Alkaline Phosphatase 111 U/L (46-116); Anion Gap 10.4 mmol/L (3-11); BUN 15 mg/dL (7-18); Bilirubin, Total 0.4 mg/dL (0.2-1.0); CO2 25.6 mmol/L (21.0-32.0); CREATININE 1.2 mg/dL (0.70-1.30); Calcium 8.3 mg/dL (8.5-10.1); Chloride 104 mmol/L (98-107); Estimated GFR 61.52 (mL/min/1.73m2); Glucose 132 mg/dL (74-106); Potassium 4.2 mmol/L (3.5-5.1); Sodium 140 mmol/L (136-145); TSH (W/Ref FT4) 0.68 uIU/mL (0.36-3.74); Total Protein 7.7 g/dL (6.4-8.2)
== END 2023-01-24 03:18 | disposition home or self-care (01) ==
PROVIDERS: PCP Nurse Practitioner Family; Visit Provider Nurse Practitioner Family
DX: G89.29 Other chronic pain (principal); I65.29 Occlusion and stenosis of unspecified carotid artery; R51.9 Headache, unspecified; I48.0 Paroxysmal atrial fibrillation; R73.03 Prediabetes
CPT/HCPCS: 36415; 80053; 83036; 84443; 85025

== ENCOUNTER 2023-01-31 01:33 | Outpatient (CLI) | payer MEDICARE, SELFPAY ==
[2023-01-31] MEDS: Normal Saline Flush 10 ML SYR IJ (11:13)
[2023-01-31] MEDS: Omnipaque 350 MG/ML 500 ML BTL-Imaging package 85 ML IJ (11:28)
--- NOTE | 2023-01-31 11:44 | DI.CT_ITS ---
Exam(s) CT BRAIN NECK CTA EXAM: CT BRAIN NECK CTA CLINICAL HISTORY: worsening headache, dizziness, nausea. TECHNIQUE: Imaging Protocol: Axial CT angiography was performed with multi-slice acquisition and mu lti-planar and 3D reconstructions. CONTRAST MATERIAL: Intravenous: Omnipaque 350 Contrast volume:structured data in ml COMPARISON: CT CT ABDOMEN PELVIS WO/W from 05/19/[address] HEAD WO from 04/08/2022 FINDINGS: CT Head W/O and W contrast: Ventricles and Extra axial spaces: Normal in size and morphology for the patient's age. Hemorrhage: None. Cerebral parenchyma: Normal. Midline shift: None. Brainstem/Cerebellum: Normal. Calvarium: Normal. Visualized Paranasal sinuses/Mastoids: Mucosal thickening of the left maxillary sinus. Mucosal thick ening in a partial opacification of the ethmoids. Soft Tissues: Unremarkable. Enhancement: Normal. CTA Brain W: Internal Carotid Arteries: Petrous: Normal. Cavernous: Calcification but no significant stenosis. Cerebral: Normal. Middle Cerebral Arteries: Right: No aneurysm, occlusion or significant stenosis. Left: No aneurysm, occlusion or significant stenosis. Anterior Cerebral Arteries: Right: No aneurysm, occlusion or significant stenosis. Left: No aneurysm, occlusion or significant stenosis. Posterior cerebral Arteries: Right: No aneurysm, occlusion or significant stenosis. Left: no aneurysm, occlusion or significant stenosis. Vertebral Arteries: Right: Distal calcification. No aneurysm, occlusion or significant stenosis. Left: Distal calcification.No aneurysm, occlusion or significant stenosis. Basilar Artery: No aneurysm, occlusion or significant stenosis. CTA Neck W: Common Carotid: Right: No dissection, occlusion or significant stenosis. Left: No dissection, occlusion or significant stenosis. External Carotid: Right: No dissection, occlusion or significant stenosis. Left: No dissection, occlusion or significant stenosis. Internal Carotid: Right: Heavy calcific plaque causing 50 percent diameter stenosis. No dissection, occlusion or signi ficant stenosis. Left: Calcific plaque causing less than 50 percent stenosis. No dissection, occlusion or significant stenosis. Vertebral Artery: Right: No dissection, occlusion or significant stenosis. Left: No dissection, occlusion or significant stenosis. Lung Apices: Normal. Bones: No acute abnormality. Soft Tissues: Normal. IMPRESSION: 1. CT a brain: Calcification of the distal vertebral arteries without significant stenosis. Calcifi cation in the cavernous portion of the internal carotid arteries without significant stenosis. No ev idence of aneurysm. 2. Unremarkable CT Head. 3. Heavy plaque at the right proximal internal carotid artery causing approximately 50 percent stenos is. 4. Plaque at the proximal right internal carotid artery causes mild stenosis, less than 50 percent. RADIATION DOSE DELIVERED: 2,341.91mGy.cm Total DLP DATA REPOSITORY: All CT scans at this facility are submitted to the National Radiology Data Registry (NRDR) Dose Index Registry (DIR) with the [employer] (ACR). RADIATION OPTIMIZATION: All CT scans at this facility use at least one of these dose optimization te chniques: automated exposure control; mA and/or kV adjustment per patient size (includes targeted exa ms where dose is matched to clinical indication); or iterative reconstruction.
== END 2023-01-31 01:53 ==
LOC: DI 01:33
PROVIDERS: PCP Nurse Practitioner Family; Visit Provider Nurse Practitioner Family
DX: G89.29 Other chronic pain (principal); I65.29 Occlusion and stenosis of unspecified carotid artery; R42 Dizziness and giddiness; R51.9 Headache, unspecified
CPT/HCPCS: 70496; 70498

== ENCOUNTER 2023-03-03 13:59 | Emergency (ER) | payer MEDICARE, SELFPAY ==
[2023-03-03 14:02] VITALS: BP 148/78; PULSE 63; TEMP 37; O2SAT 91
--- NOTE | 2023-03-03 14:46 | NUR.NOTE ---
Got pt an appt with [email or web address] for 1520 today. Nursing Note:
--- NOTE | 2023-03-04 17:18 | W.ED.GENAD ---
Discharge Plan Disposition Patient Disposition: Home Discharge Details Clinical Impression: Foreign body in eyeball, right Primary Care Provider: Tiffanie Wick ED Provider: Mercy Romero Home Meds and New Rx's Prescriptions: Continued aspirin [Adult Aspirin Regimen] 81 mg tablet,delayed release (DR/EC) 81 mg PO DAILY metoprolol succinate 25 mg tablet extended release 24 hr 25 mg PO DAILY Qty: 90 3RF chlorthalidone 25 mg tablet 25 mg PO DAILY Qty: 90 3RF topiramate 50 mg tablet 25 - 50 mg PO DAILY Qty: 90 0RF Rx Instructions: Take half a tablet daily for one week then increase to 1 tablet daily garlic 1 EACH capsule 1 ea PO DAILY Patient Comments: 08/06/16 Has not taken since surgery; unsure if they will restart. LR Eliquis 5 mg tablet 5 mg PO BID Qty: 180 3RF amlodipine 10 mg tablet 10 mg PO DAILY Qty: 90 3RF amoxicillin 500 mg capsule 2,000 mg PO ONCE Rx Instructions: Take 4 tablet by mouth once as needed, one hour prior to dental procedure for up to 1 dose. gabapentin 300 mg capsule 300 mg PO BID Qty: 180 3RF atorvastatin 20 mg tablet 20 mg PO DAILY Qty: 90 3RF pantoprazole 40 mg tablet,delayed release (DR/EC) 40 mg PO DAILY Discharge Instructions Additional Instructions: go to [facility] you have an appt at 3;20 today Discharge Data Discharge Date/Time-TO BE ENTERED AT DEPARTURE: 03/03/23 14:52 Medical Decision Making 78-year-old male presents with reports of right eye injury. He has a piece of steel in the 7 o'clock position overlying his iris, his pupils equal round reactive to light and accommodation, we unfortunately do not have a bur available at this facility, there is no obvious evidence of ruptured globe, and visual acuity was reviewed without significant acute abnormality For further evaluation and management he was sent over to our medical customer service representative for, [facility] who schedule an appointment for 20 minutes from patient's time of discharge He is discharged to the medical customer service representative in stable condition with stable vitals and no acute distress with his vision intact for further evaluation management of a foreign body in his right eye HPI General Date/Time Provider Initiated Documentation: 03/03/23 14:21. HPI Narrative: This 78-year-old male presents with piece of steel in his right eye. He states is causing discomfort. States he was grinding some metal a week ago when he thinks he lost a piece in his eye. Denies any change in vision. Denies any corrective lens use. Related Data Home Medications Medication Instructions Recorded Confirmed garlic 1 ea PO DAILY 08/20/15 03/03/23 aspirin 81 mg tablet,delayed 81 mg PO DAILY 11/22/18 03/03/23 release (Adult Aspirin Regimen) metoprolol succinate 25 mg 25 mg PO DAILY #90 tabs 05/05/22 03/03/23 tablet,extended release 24 hr apixaban 5 mg tablet (Eliquis) 5 mg PO BID #180 tabs 08/11/22 03/03/23 amlodipine 10 mg tablet 10 mg PO DAILY #90 tab-caps 10/08/22 03/03/23 amoxicillin 500 mg capsule 2,000 mg PO ONCE 10/14/22 02/18/23 gabapentin 300 mg capsule 300 mg PO BID #180 caps 11/03/22 02/18/23 atorvastatin 20 mg tablet 20 mg PO DAILY #90 tabs 12/24/22 03/03/23 chlorthalidone 25 mg tablet 25 mg PO DAILY #90 tabs 01/20/23 03/03/23 pantoprazole 40 mg tablet,delayed 40 mg PO DAILY 01/20/23 03/03/23 release topiramate 50 mg tablet 25 - 50 mg PO DAILY #90 tabs 02/18/23 02/18/23 Previous Rx's Medication Instructions Recorded metoprolol succinate 25 mg 25 mg PO DAILY #90 tabs 05/05/22 tablet,extended release 24 hr apixaban 5 mg tablet (Eliquis) 5 mg PO BID #180 tabs 08/11/22 amlodipine 10 mg tablet 10 mg PO DAILY #90 tab-caps 10/08/22 gabapentin 300 mg capsule 300 mg PO BID #180 caps 11/03/22 atorvastatin 20 mg tablet 20 mg PO DAILY #90 tabs 12/24/22 chlorthalidone 25 mg tablet 25 mg PO DAILY #90 tabs 01/20/23 topiramate 50 mg tablet 25 - 50 mg PO DAILY #90 tabs 02/18/23 Allergies Allergy/AdvReac Type Severity Reaction Status Date / Time adhesive Allergy Intermediate redness, Verified 03/03/23 14:07 burning sensation, blisters blue dye Allergy Verified 03/03/23 14:07 cephalexin monohydrate AdvReac Intermediate diarrhea Verified 03/03/23 14:07 [From Keflex] General Stated Complaint: EyeProblem OLIMPIA: 3 PFSH All Active Problems Foreign body in eyeball, right (Acute) Chronic headache (Chronic) Malignant neoplasm of bladder (Chronic ~2019) Papillary Urothelial Carcinoma s/p TURBT--doesn't desire further treatment or followup Coronary artery disease (Chronic) S/p CABG x 1 (COREAS to LAD) 2015 Paroxysmal atrial fibrillation (Chronic) Obstructive sleep apnea (Chronic) Moderate to severe on PSG in 11/29/2015. Declined CPAP Essential hypertension (Chronic) Hyperlipidemia (Chronic) Peripheral edema (Chronic) Prediabetes (Chronic) Obesity (Chronic) Sensorineural hearing loss, bilateral (Chronic) Peripheral neuropathy (Chronic) Essential tremor (Chronic) BPH loc w urin obs/LUTS (Acute) Pipe smoker (Chronic) Medical History Aortic stenosis S/p AVR x 2 Surgical History H/O transurethral resection of bladder tumor (TURBT) (05/25/22) History of aortic valve replacement with bioprosthetic valve (07/20/16) S/P CABG x 1 (07/20/16) S/P TAVR (transcatheter aortic valve replacement) (10/13/22) TAVR with 26mm ultra R valve in 25mmpericardial surgical valve Family History Mother Heart disease Myocardial infarction Father Bone cancer Brother No problems noted. Brother COPD (chronic obstructive pulmonary disease) Brother No problems noted. Sister No problems noted. Maternal Grandfather No problems noted. Maternal Grandmother No problems noted. Paternal Grandfather No problems noted. Paternal Grandmother No problems noted. Social History Smoking/Tobacco Use Status: Current every day Tobacco Type: pipe Smoking risk assessment performed?: Yes Alcohol Intake: current Alcohol Intake frequency: a few times a week Drug use: Never Substance use type: does not use Do you feel safe at home: Yes Do you feel safe in your relationship?: Yes Course Vital Signs Vital signs: Vital Signs Temperature 37.0 C 03/03/23 14:02 Pulse 63 03/03/23 14:02 Blood Pressure 148/78 H 03/03/23 14:02 Pulse Oximetry 91 L 03/03/23 14:02 Temperature 37.0 C 03/03/23 14:02 Temperature Source Skin 03/03/23 14:02 Pulse 63 03/03/23 14:02 Respiratory Effort Normal 03/03/23 14:05 Blood Pressure 148/78 H 03/03/23 14:02 Pulse Oximetry 91 L 03/03/23 14:02 Oxygen Delivery Method Room Air 03/03/23 14:02 Oxygen Flow Rate 0 03/03/23 14:02
== END 2023-03-03 14:52 | disposition home or self-care (01) ==
PROVIDERS: Emergency Provider Physician Assistant; PCP Nurse Practitioner Family
DX: T15.81XA Foreign body in other and multiple parts of external eye, right eye, initial encounter (principal); X58.XXXA Exposure to other specified factors, initial encounter
CPT/HCPCS: 99283

== ENCOUNTER 2023-08-09 08:52 | Outpatient (CLI) | payer MEDICARE, SELFPAY ==
--- NOTE | 2023-08-09 08:45 | RT.EKG_ITS ---
APPROVED REPORT Exam: Resting ECG Reason for Exam: afib Patient Location: O HR:70 bpm ECG Measurements Heart Rate 70 AXIS IN 174 P -6 QRSd 92 QRS 28 QT 417 T 20 QTc 450 Conclusion Sinus rhythm...normal P axis, V-rate 50- 99 Probable left atrial enlargement...P >50mS, <-0.10mV V1 Anteroseptal infarct, old...Q >40mS, V1-V2 Baseline wander in lead(s) II,III,aVF,V6 I have reviewed and interpreted ECG and agree with software generated interpretation.
== END 2023-08-09 08:53 | disposition home or self-care (01) ==
LOC: DI.CARD 08:53
PROVIDERS: PCP Nurse Practitioner Family; Visit Provider Internal Medicine Interventional Cardiology
DX: I48.0 Paroxysmal atrial fibrillation (principal)
CPT/HCPCS: 93010

== ENCOUNTER → 2023-08-09 09:55 | Outpatient (BNVA) | payer MEDICARE, SELFPAY | PROVIDERS: PCP Nurse Practitioner Family; Visit Provider Internal Medicine Interventional Cardiology | DX: Z95.2 Presence of prosthetic heart valve (principal) | CPT/HCPCS: 93005; 99213 ==

== ENCOUNTER → 2023-12-30 08:47 | Outpatient (BNVA) | payer MEDICARE, SELFPAY | PROVIDERS: PCP Nurse Practitioner Family; Referring Provider Nurse Practitioner Family; Visit Provider Internal Medicine Cardiovascular Disease | DX: I25.810 Atherosclerosis of coronary artery bypass graft(s) without angina pectoris (principal); I48.0 Paroxysmal atrial fibrillation; Z95.2 Presence of prosthetic heart valve | CPT/HCPCS: 99213 ==

== ENCOUNTER 2024-06-08 01:16 | Outpatient (CLI) | payer MEDICARE, SELFPAY ==
[2024-06-08 12:54] LABS: HCT 48.5 % (40.0-50.0); HGB 16.3 g/dL (13.5-17.5); MCHC 33.6 % (32.0-36.0); MCV 89 fL (80-95); MPV 10.2 fL (8.0-11.0); Platelet Count 209 10^3/uL (130-400); RBC 5.44 10^6/uL (4.36-5.78); RDW 12.7 % (11.8-14.1); RDW-SD 41.3 fL; WBC 8.22 10^3/uL (4.4-10.8)
[2024-06-08 13:14] LABS: Hemoglobin A1C 6.4 % (<5.7)
[2024-06-08 13:16] LABS: ALT 45 U/L (16-63); AST 29 U/L (15-37); Albumin 3.2 g/dL (3.4-5.0); Alkaline Phosphatase 110 U/L (46-116); BUN 12 mg/dL (7-18); Bilirubin, Total 0.65 mg/dL (0.2-1.0); CREATININE 1.1 mg/dL (0.70-1.30); Calcium 8.9 mg/dL (8.5-10.1); Chloride 100 mmol/L (98-107); Estimated GFR 67.44 (mL/min/1.73m2); Glucose 156 mg/dL (74-106); Sodium 138 mmol/L (136-145); Total Protein 7.2 g/dL (6.4-8.2)
[2024-06-08 18:44] LABS: PSA, Screening 0.6 ng/mL (<=6.5)
[2024-06-08 19:21] LABS: HIV-1/2 Ag & Ab Screen Negative (Negative)
[2024-06-08 19:24] LABS: HBs Antibody, Quant <3.1 mIU/mL (See Note); Hep B Surface Ab Negative (See Note); Hepatitis B Core Antibody Negative (Negative); Hepatitis B Surface Antigen Negative (Negative)
[2024-06-08 19:27] LABS: Hepatitis C Ab w Rflx HCV PCR Negative (Negative)
== END 2024-06-08 01:17 | disposition home or self-care (01) ==
LOC: LOS 01:17
PROVIDERS: PCP Nurse Practitioner Family; Visit Provider Nurse Practitioner Family
DX: R73.03 Prediabetes (principal); I25.810 Atherosclerosis of coronary artery bypass graft(s) without angina pectoris; I48.0 Paroxysmal atrial fibrillation; Z11.4 Encounter for screening for human immunodeficiency virus [HIV]; Z11.59 Encounter for screening for other viral diseases; N40.1 Benign prostatic hyperplasia with lower urinary tract symptoms; Z12.5 Encounter for screening for malignant neoplasm of prostate
CPT/HCPCS: 36415; 80053; 84153; 85027; 86704; 86706; 86803; 87340; 87389; 83036

== ENCOUNTER → 2024-06-22 08:50 | Outpatient (BNVA) | payer MEDICARE, SELFPAY | PROVIDERS: PCP Nurse Practitioner Family; Visit Provider Internal Medicine Cardiovascular Disease | DX: I25.810 Atherosclerosis of coronary artery bypass graft(s) without angina pectoris (principal); I48.0 Paroxysmal atrial fibrillation; Z95.2 Presence of prosthetic heart valve | CPT/HCPCS: 99213 ==

== ENCOUNTER 2024-07-18 04:42 | Outpatient (CLI) | payer MEDICARE, SELFPAY ==
[2024-07-18 12:29] LABS: Potassium 2.8 mmol/L (3.5-5.1)
== END 2024-07-18 04:43 | disposition home or self-care (01) ==
LOC: LOS 04:42
PROVIDERS: PCP Nurse Practitioner Family; Visit Provider Nurse Practitioner Family
DX: E87.6 Hypokalemia (principal)
CPT/HCPCS: 36415; 84132

== ENCOUNTER 2024-08-03 01:34 | Outpatient (CLI) | payer MEDICARE, SELFPAY ==
[2024-08-03 12:24] LABS: Anion Gap 6.3 mmol/L (3-11); BUN 16 mg/dL (7-18); CO2 31.7 mmol/L (21.0-32.0); CREATININE 1.1 mg/dL (0.70-1.30); Calcium 9.5 mg/dL (8.5-10.1); Chloride 100 mmol/L (98-107); Estimated GFR 67.44 (mL/min/1.73m2); Glucose 139 mg/dL (74-106); Potassium 3.4 mmol/L (3.5-5.1); Sodium 138 mmol/L (136-145)
== END 2024-08-03 01:35 | disposition home or self-care (01) ==
LOC: LOS 01:34
PROVIDERS: PCP Nurse Practitioner Family; Visit Provider Nurse Practitioner Family
DX: E87.6 Hypokalemia (principal)
CPT/HCPCS: 36415; 80048

== ENCOUNTER 2024-08-29 04:04 | Outpatient (CLI) | payer MEDICARE, SELFPAY ==
[2024-08-29 12:28] LABS: Potassium 3.9 mmol/L (3.5-5.1)
== END 2024-08-29 04:05 | disposition home or self-care (01) ==
LOC: LOS 04:04
PROVIDERS: PCP Nurse Practitioner Family; Visit Provider Nurse Practitioner Family
DX: E87.6 Hypokalemia (principal)
CPT/HCPCS: 36415; 84132

== ENCOUNTER 2024-10-06 02:37 | Emergency (ER) | payer MEDICARE, SELFPAY ==
[2024-10-06 02:44] VITALS: BP 141/66; PULSE 72; RESP 16; TEMP 36.9; O2SAT 95
--- NOTE | 2024-10-06 02:52 | ED.GENADUL_ITS ---
Discharge Plan Disposition Patient Disposition: Home Condition: Good Discharge Details Clinical Impression: Hematuria, Anticoagulated Primary Care Provider: Tiffanie Wick ED Provider: Marva Mcmanus Home Meds and New Rx's Prescriptions: Continued metoprolol succinate 25 mg tablet extended release 24 hr 25 mg PO DAILY Qty: 90 3RF cyclobenzaprine 5 mg tablet 5 - 10 mg PO TID PRN (Reason: muscle spasm) Qty: 60 0RF Rx Instructions: Take 1 to 2 tablets by mouth three times a day as needed for pain atorvastatin 20 mg tablet 20 mg PO DAILY Qty: 90 3RF chlorthalidone 25 mg tablet 25 mg PO DAILY Qty: 90 3RF pantoprazole 40 mg tablet,delayed release (DR/EC) 40 mg PO DAILY Qty: 90 3RF amlodipine 5 mg tablet 5 mg PO BID Qty: 180 3RF potassium chloride 20 mEq packet 20 meq PO BID Qty: 180 3RF Eliquis 5 mg tablet 5 mg PO BID Qty: 180 3RF Discharge Instructions Instructions: Blood in Urine (Hematuria), Adult ED Additional Instructions: Call your primary care doctor on Tuesday to schedule an appointment to followup on your potassium level and your blood pressure which is high here today. Urology will call you to schedule an appointment; if you do not hear from them by Tuesday afternoon, please call. Return to the emergency department if you are unable to urinate, you develop abdominal pain, you feel weak/dizzy/like you are going to pass out, or if you have any other concerns. Referrals: [facility] [Provider Group] Tiffanie Wick NP [Primary Care Provider] - [facility] General Mode of arrival: ambulatory . Date/Time Provider Initiated Documentation: 10/06/24 02:38 . Limitations to Documentation: no limitations . Information obtained by: patient and family . HPI Narrative: 79yo M hx of bladder cancer s/p resection several years ago, on eliquis, presenting for hematuria. About an hour ago noted large blood clots in his urine, had some difficultly starting his stream. Has not has any issues like this since his surgery. No abdominal pain. Otherwise in his usual state of health with no fevers, lightheadedness, chest pain, dysuria, flank pain, or other concerns. Related Data Home Medications ?Medication ?Instructions ?Recorded ?Confirmed atorvastatin 20 mg tablet 20 mg PO DAILY #90 tabs 12/12/23 10/06/24 chlorthalidone 25 mg tablet 25 mg PO DAILY #90 tabs 02/15/24 10/06/24 pantoprazole 40 mg tablet,delayed 40 mg PO DAILY #90 tabs 03/26/24 10/06/24 release cyclobenzaprine 5 mg tablet 5 - 10 mg (1 - 2 x 5 mg) PO TID 03/28/24 10/06/24 PRN muscle spasm #60 tabs metoprolol succinate 25 mg 25 mg PO DAILY #90 tabs 06/05/24 10/06/24 tablet,extended release 24 hr amlodipine 5 mg tablet 5 mg PO BID #180 tabs 08/27/24 10/06/24 potassium chloride 20 mEq oral 20 meq PO BID #180 ea 08/30/24 10/06/24 packet apixaban 5 mg tablet (Eliquis) 5 mg PO BID #180 tabs 09/07/24 10/06/24 Previous Rx's ?Medication ?Instructions ?Recorded atorvastatin 20 mg tablet 20 mg PO DAILY #90 tabs 12/12/23 chlorthalidone 25 mg tablet 25 mg PO DAILY #90 tabs 02/15/24 pantoprazole 40 mg tablet,delayed 40 mg PO DAILY #90 tabs 03/26/24 release cyclobenzaprine 5 mg tablet 5 - 10 mg (1 - 2 x 5 mg) PO TID 03/28/24 PRN muscle spasm #60 tabs metoprolol succinate 25 mg 25 mg PO DAILY #90 tabs 06/05/24 tablet,extended release 24 hr amlodipine 5 mg tablet 5 mg PO BID #180 tabs 08/27/24 potassium chloride 20 mEq oral 20 meq PO BID #180 ea 08/30/24 packet apixaban 5 mg tablet (Eliquis) 5 mg PO BID #180 tabs 09/07/24 Allergies Allergy/AdvReac Type Severity Reaction Status Date / Time adhesive Allergy Intermediate redness, Verified 10/06/24 02:49 burning sensation, blisters blue dye Allergy Cough Verified 10/06/24 02:49 cephalexin monohydrate (From AdvReac Intermediate diarrhea Verified 10/06/24 02:49 Keflex) General Stated Complaint: Urinary OLIMPIA: 3 Review of Systems Narrative: see HPI Exam Narrative Exam Narrative: General: Alert, well appearing, well nourished, in no acute distress. Head: Normocephalic, atraumatic Neck: Trachea midline, ?Neck supple. Cardiac: ?RRR Resp: No respiratory distress. Speaking in full sentences Abd: ?Soft, non-distended, nontender : ?No suprapubic tenderness. No CVA tenderness. Extremities: ?No deformities.? No peripheral edema. Neurologic: GCS 15. ? Moves all extremities freely against gravity Course Vital Signs Vital signs: Vital Signs Temperature 36.9 C 10/06/24 02:44 Pulse 72 10/06/24 02:44 Respiratory Rate 16 10/06/24 02:44 Blood Pressure 141/66 H 10/06/24 02:44 Pulse Oximetry 95 10/06/24 02:44 Temperature 36.9 C 10/06/24 02:44 Pulse 72 10/06/24 02:44 Respiratory Rate 16 10/06/24 02:44 Blood Pressure 141/66 H 10/06/24 02:44 Pulse Oximetry 95 10/06/24 02:44 Pain Level 0 10/06/24 02:44 Medical Decision Making 79yo M hx of bladder cancer s/p resection several years ago, on eliqu, presenting for hematuria onset about hour [employer]ER[employer] CH[employer], blood clots and difficulty starting his stream. Vital signs reassuring on arrival. Systemically well. No pain to suggest nephrolithiasis. No dysuria or fever. Not overtly septic. No urinary obstruction. Able to void easily in the ED and emptied his bladder; reports he passed a clot and that the urine after the clot was mostly yellow. Discussed options with patient including inserting hernandez for irrigation to flush out any further clots and reduce chance of urinary obstruction; patient declines at this time which is not unreasonable. Agreed to blood work to assess for anemia and kidney function. Will get labs and continue to monitor ability to void in ED, would not get CT imaging at this time. Labs reviewed as below, CBC reassuring with no leukocytosis or anemia, CMP with hypokalemia at 3.1 (oral replacement ordered) and normal Cr, coags reassuring. UA with hematuria, otherwise uninterpretable; sent for culture. On reassessment he remains well appearing with no suprapubic pain. He is on potassium supplementation at home which per his was decreased from TID to BID about a month ago. He was advised to followup with his PCP regarding this. He does not currently follow with a urologist; referral sent to [facility] urology. He would like to go home and understands to return immediately if he is unable to void or develops abdominal pain. Discharged home; discharge instructions and return precautions reviewed with patient and family at bedside. All questions were answered and they are in full agreement with the plan. Lab Data Lab results reviewed: Yes I reviewed the patient's lab results. Labs: 10/06/24 02:44 Urine - Reflex from Ua Urine Culture - Pending Laboratory Tests Range/Units 10/06/24 10/06/24 02:44 03:20 WBC (4.4-10.8) 10^3/uL 6.87 RBC (4.36-5.78) 10^6/uL 5.81 H Hgb (13.5-17.5) g/dL 17.5 Hct (40.0-50.0) % 50.5 H MCV (80-95) fL 87 MCH (27.0-33.0) pg 30.1 MCHC (32.0-36.0) % 34.7 RDW (11.8-14.1) % 12.0 Plt Count (130-400) 10^3/uL 187 MPV (8.0-11.0) fL 10.0 Immature Gran % % 0.3 Neutrophils % % 58.6 Lymphocytes % % 25.5 Monocytes % % 9.8 Eosinophils % % 5.1 Basophils % % 0.7 Nucleated RBC % (0.0-0.3) % 0.0 Absolute Neutrophils (1.2-6.7) 10^3/uL 4.03 Absolute Lymphocytes (1.2-3.4) 10^3/uL 1.75 Absolute Monocytes (0.1-0.8) 10^3/uL 0.67 Absolute Eosinophils (0.0-0.7) 10^3/uL 0.35 Absolute Basophils (0.0-0.2) 10^3/uL 0.05 PT (9.1-11.1) sec 12.0 H INR (0.9-1.1) 1.2 H APTT (20.6-30.2) sec 28.4 Sodium (136-145) mmol/L 140 Potassium (3.5-5.1) mmol/L 3.1 L Chloride (98-107) mmol/L 100 Carbon Dioxide (21.0-32.0) mmol/L 34.9 H Anion Gap (3-11) mmol/L 5.1 BUN (7-18) mg/dL 14 Creatinine (0.70-1.30) mg/dL 1.0 Est GFR (CKD-EPI 2020) (mL/min/1.73m2) 75.61 Glucose (74-106) mg/dL 131 H Calcium (8.5-10.1) mg/dL 9.5 Total Bilirubin (0.2-1.0) mg/dL 0.4 AST (15-37) U/L 36 ALT (16-63) U/L 64 H Alkaline Phosphatase (46-116) U/L 142 H Total Protein (6.4-8.2) g/dL 8.1 Albumin (3.4-5.0) g/dL 3.9 Urine Color (Yellow) Red Urine Clarity (Clear) Clear Urine pH (5-8) Ur Specific Morgan (1.005-1.025) 1.010 Urine Protein (Neg-Trace) mg/dL Color Interference Urine Ketones (Negative) mg/dL Color Interference Urine Blood (Negative) Color Interference Urine Nitrite (Negative) Color Interference Urine Bilirubin (Negative) Color Interference Urine Urobilinogen (Up to 0.2) mg/dL Color Interference Ur Leukocyte Esterase (Negative) Color Interference Urine RBC (0-2) HPF >50 H Urine WBC Not Applicable Ur Epithelial Cells Not Applicable Urine Crystals Not Applicable Urine Bacteria Not Applicable Urine Mucus Not Applicable Ur Culture Indicated? Yes Urine Glucose (Negative) mg/dL Color Interference Quality:SDOH Health Related Social Needs: No Data to Display PFSH All Active Problems (Updated 10/06/24 @ 03:59 by Marva Mcmanus MD) Anticoagulated (Acute) Hematuria (Acute) Malignant neoplasm of bladder (Chronic ~2019) Papillary Urothelial Carcinoma s/p TURBT--doesn't desire further treatment or followup Coronary artery disease (Chronic) S/p CABG x 1 (COREAS to LAD) 2015 Paroxysmal atrial fibrillation (Chronic) Obstructive sleep apnea (Chronic) Moderate to severe on PSG in 11/29/2015. Declined CPAP Essential hypertension (Chronic) Hyperlipidemia (Chronic) Prediabetes (Chronic) Obesity (Chronic) Retinal hemorrhage, left eye (Chronic) Sensorineural hearing loss, bilateral (Chronic) Peripheral neuropathy (Chronic) Essential tremor (Chronic) GERD (gastroesophageal reflux disease) (Chronic) BPH loc w urin obs/LUTS (Chronic) Pipe smoker (Chronic) Allergic rhinitis (Chronic) Medical History Aortic stenosis S/p AVR x 2 Surgical History H/O transurethral resection of bladder tumor (TURBT) (05/25/22) S/P TAVR (transcatheter aortic valve replacement) (10/13/22) TAVR with 26mm ultra R valve in 25mm pericardial surgical valve History of aortic valve replacement with bioprosthetic valve (07/20/16) S/P CABG x 1 (07/20/16) Family History Mother Heart disease Myocardial infarction Father Bone cancer Brother No problems noted. Brother COPD (chronic obstructive pulmonary disease) Brother No problems noted. Sister No problems noted. Maternal Grandfather No problems noted. Maternal Grandmother No problems noted. Paternal Grandfather No problems noted. Paternal Grandmother No problems noted. Social History Smoking/Tobacco Use Status: Current every day Tobacco Type: pipe Tobacco: How many years used: 65 Smokeless tobacco user: other (pipe) Quit status: not considering quitting Second Hand Exposure: Yes Smoking risk assessment performed?: Yes Alcohol Intake: current Alcohol Intake frequency: a few times a week Alcohol type: beer Drug use: Never Substance use type: does not use Adopted: No Household members: spouse Housing: house Number of Children: 0 number of grandchildren: 0 Communication Needs: Hard of Hearing Do you need help understanding health information?: Rarely current occupation: [employer] Sexually active: No Do you think of yourself as: straight/heterosexual Current gender identity: male What is your relationship status?: How often do you talk on the phone with friends or family?: three or more times per week How often do you get together with friends or relatives?: three or more times per week How often do you attend pentecostal or latter day services?: decline to answer Do you belong to any clubs or organized social groups?: yes Panel score (0-1 are the most socially isolated patients): 3 What type of physical activity do you participate in: other Details: Work Joanne/Mandaen: Non mu-ism Special joanne needs: No Seatbelt use: sometimes Helmet use: No Drive intox or ride w/intox trailer driver: No Firearms in home: Yes Do you feel safe at home: Yes Do you feel safe in your relationship?: Yes Would you like helpful sources: No
[2024-10-06 03:02] LABS: Bilirubin Color Interference (Negative); Blood Color Interference (Negative); Clarity Clear (Clear); Glucose Color Interference mg/dL (Negative); Ketones Color Interference mg/dL (Negative); Leukocyte Esterase Color Interference (Negative); Nitrite Color Interference (Negative); Urobilinogen Color Interference mg/dL (Up to 0.2)
[2024-10-06 03:07] LABS: C & S Indicated? Yes; RBC >50 HPF (0-2)
[2024-10-06 03:35] LABS: Abs Immature Grans 0.02 10^3/uL (0.0-0.06); Absolute Basophil Count 0.05 10^3/uL (0.0-0.2); Absolute Eosinophil Count 0.35 10^3/uL (0.0-0.7); Absolute Lymphocyte Count 1.75 10^3/uL (1.2-3.4); Absolute Monocyte Count 0.67 10^3/uL (0.1-0.8); Absolute Neutrophil Count 4.03 10^3/uL (1.2-6.7); Basophils % 0.7 %; Eosinophils % 5.1 %; HCT 50.5 % (40.0-50.0); HGB 17.5 g/dL (13.5-17.5); Immature Grans % 0.3 %; Lymphocytes % 25.5 %; MCH 30.1 pg (27.0-33.0); MCHC 34.7 % (32.0-36.0); MCV 87 fL (80-95); Monocytes % 9.8 %; Neutrophils % 58.6 %; Platelet Count 187 10^3/uL (130-400); RBC 5.81 10^6/uL (4.36-5.78); RDW-SD 38.5 fL; WBC 6.87 10^3/uL (4.4-10.8)
[2024-10-06 03:43] LABS: ALT 64 U/L (16-63); AST 36 U/L (15-37); Albumin 3.9 g/dL (3.4-5.0); Alkaline Phosphatase 142 U/L (46-116); Anion Gap 5.1 mmol/L (3-11); BUN 14 mg/dL (7-18); Bilirubin, Total 0.4 mg/dL (0.2-1.0); CO2 34.9 mmol/L (21.0-32.0); Calcium 9.5 mg/dL (8.5-10.1); Chloride 100 mmol/L (98-107); Estimated GFR 75.61 (mL/min/1.73m2); Glucose 131 mg/dL (74-106); Potassium 3.1 mmol/L (3.5-5.1); Sodium 140 mmol/L (136-145); Total Protein 8.1 g/dL (6.4-8.2)
[2024-10-06 03:44] LABS: INR 1.2 (0.9-1.1); PTT Activated 28.4 sec (20.6-30.2)
[2024-10-06] MEDS: Potassium Chloride 20 MEQ TABCR 40 MEQ PO (04:02)
[2024-10-06 04:08] VITALS: BP 170/71; PULSE 77; RESP 18; TEMP 36; O2SAT 95
[2024-10-06 04:10] VITALS: BP 170/71; PULSE 77; RESP 18; TEMP 36; O2SAT 94
== END 2024-10-06 04:16 | disposition home or self-care (01) ==
PROVIDERS: Emergency Provider Student in an Organized Health Care Education/Training Program; PCP Nurse Practitioner Family
DX: R31.9 Hematuria, unspecified (principal); E87.6 Hypokalemia; I25.10 Atherosclerotic heart disease of native coronary artery without angina pectoris; I10 Essential (primary) hypertension; E78.5 Hyperlipidemia, unspecified; F17.290 Nicotine dependence, other tobacco product, uncomplicated; Z95.2 Presence of prosthetic heart valve; Z95.1 Presence of aortocoronary bypass graft; Z79.01 Long term (current) use of anticoagulants; Z85.51 Personal history of malignant neoplasm of bladder
CPT/HCPCS: 36415; 80053; 99283; 81003; 81015; 85025; 85610; 85730; 87086

== ENCOUNTER 2024-10-08 10:41 | Emergency (ER) | payer MEDICARE, SELFPAY ==
[2024-10-08 11:08] VITALS: BP 127/77; PULSE 75; RESP 20; TEMP 37; O2SAT 92
[2024-10-08 11:59] LABS: Bilirubin Negative (Negative); Blood Large (Negative); Clarity Cloudy (Clear); Glucose Negative (Negative); Ketones Negative (Negative); Leukocyte Esterase Negative (Negative); Nitrite Negative (Negative); Specific Gravity 1.025 (1.005-1.025); Urobilinogen 0.2 mg/dL (Up to 0.2)
[2024-10-08 12:01] LABS: C & S Indicated? Yes; RBC >50 HPF (0-2)
[2024-10-08 12:12] VITALS: BP 127/77; PULSE 75; RESP 20; TEMP 37; O2SAT 92
[2024-10-08 12:20] LABS: Abs Immature Grans 0.03 10^3/uL (0.0-0.06); Absolute Basophil Count 0.05 10^3/uL (0.0-0.2); Absolute Eosinophil Count 0.04 10^3/uL (0.0-0.7); Absolute Lymphocyte Count 1.45 10^3/uL (1.2-3.4); Absolute Monocyte Count 0.74 10^3/uL (0.1-0.8); Basophils % 0.5 %; Eosinophils % 0.4 %; HCT 47.8 % (40.0-50.0); HGB 16.5 g/dL (13.5-17.5); Immature Grans % 0.3 %; Lymphocytes % 15.9 %; MCH 29.8 pg (27.0-33.0); MCHC 34.5 % (32.0-36.0); MCV 86 fL (80-95); MPV 9.9 fL (8.0-11.0); Monocytes % 8.1 %; Neutrophils % 74.8 %; Platelet Count 172 10^3/uL (130-400); RBC 5.54 10^6/uL (4.36-5.78); RDW-SD 38.4 fL; WBC 9.11 10^3/uL (4.4-10.8)
[2024-10-08 12:59] LABS: ALT 115 U/L (16-63); AST 91 U/L (15-37); Albumin 3.9 g/dL (3.4-5.0); Alkaline Phosphatase 113 U/L (46-116); Anion Gap 8.3 mmol/L (3-11); BUN 17 mg/dL (7-18); Bilirubin, Total 0.6 mg/dL (0.2-1.0); CO2 30.7 mmol/L (21.0-32.0); Calcium 9.2 mg/dL (8.5-10.1); Chloride 98 mmol/L (98-107); Estimated GFR 75.61 (mL/min/1.73m2); Glucose 136 mg/dL (74-106); Potassium 3.2 mmol/L (3.5-5.1); Sodium 137 mmol/L (136-145); Total Protein 7.9 g/dL (6.4-8.2)
[2024-10-08 13:34] VITALS: BP 156/79; PULSE 63; RESP 18; O2SAT 94
[2024-10-08] MEDS: Normal Saline - Diluent 50 ML VIAL IJ (14:00)
[2024-10-08] MEDS: Omnipaque 350 MG/ML 100 ML BTL IJ (14:01)
--- NOTE | 2024-10-08 14:03 | DI.CT_ITS ---
Exam(s) CT ABDOMEN PELVIS W EXAM: CT ABDOMEN PELVIS W CLINICAL HISTORY: gross hematuria, hx of bladder ca TECHNIQUE: Imaging Protocol: Axial computed tomography images with coronal and sagittal reformatted images were created and reviewed. CONTRAST MATERIAL: Intravenous: Omnipaque 350 Contrast volume:100 mL Oral: No COMPARISON: CT CHEST WITH CONTRAST from 10/10/[address] ABDOMEN PELVIS WO/W from 05/19/[address] BRAIN NECK CTA from 01/31/2023 FINDINGS: ABDOMEN: Lung Bases: There is an aortic valve replacement. Coronary artery calcifications are present. Stabl e nodules seen in the left lower lobe. No new pulmonary nodules. Liver: Normal density. Stable hepatic cyst. No suspicious hepatic masses are seen. Portal, Superior Mesenteric, and Splenic Veins: Unremarkable. Gallbladder and Biliary Tract: No radiodense calculus or dilation. Pancreas: Normal density, no abnormal calcifications or inflammatory process. Spleen: Normal. Adrenals: No masses seen. Kidneys: Normal size, contour and axis. No radiodense stones or obstructive uropathy. No masses seen. Abdominal Aorta: Abdominal portion non-dilated. Atherosclerotic calcification is present. Bowel: There is diverticulosis of the colon but no evidence of acute diverticulitis. There is no danny dence of bowel obstruction or bowel wall thickening. Appendix is unremarkable. There is a small umbi lical hernia containing an unremarkable loop of small bowel. No evidence of incarceration or obstruc tion. Peritoneal Cavity: No ascites, collection or mesenteric inflammatory response. No free air. Lymph Nodes: Within normal limits. Bones: Within normal limits for the patient's age. Sternal wires are in place. There is a stable sc lerotic focus in the S2 vertebra. Soft Tissues: There are bilateral fat containing inguinal hernias. PELVIS: Bladder: There is a new lobulated mass in the anterior wall of the urinary bladder measuring 3.9 x 2. 1 cm (series 10, image 163). There is also a lobulated mass along the posterior wall of the urinary bladder measuring 2.6 x 3.0 cm. Reproductive Organs: The prostate gland is mildly enlarged. Lymph Nodes: Within normal limits. Bones: Within normal limits for the patient's age. IMPRESSION: 1. Urinary bladder masses consistent with the patient's history of bladder carcinoma. These were not present on the examination from 2019. There is a mass along the anterior wall measuring 3.9 x 2.1 c m. The smaller lesion posteriorly measures 2.6 x 3.0 cm. It does appear to arise from the wall. Cl ot is considered less likely. 2. Incidental findings in the abdomen and pelvis as described above. RADIATION DOSE DELIVERED: 569.06mGy.cm Total DLP DATA REPOSITORY: All CT scans at this facility are submitted to the National Radiology Data Registry (NRDR) Dose Index Registry (DIR) with the [employer] (ACR). RADIATION OPTIMIZATION: All CT scans at this facility use at least one of these dose optimization te chniques: automated exposure control; mA and/or kV adjustment per patient size (includes targeted exa ms where dose is matched to clinical indication); or iterative reconstruction.
--- NOTE | 2024-10-08 14:47 | W.ED.GENAD ---
Discharge Plan Disposition Patient Disposition: Home Discharge Details Clinical Impression: Bladder mass, Gross hematuria Primary Care Provider: Tiffanie Wick ED Provider: Mercy Romero Home Meds and New Rx's Prescriptions: Continued metoprolol succinate 25 mg tablet extended release 24 hr 25 mg PO DAILY Qty: 90 3RF cyclobenzaprine 5 mg tablet 5 - 10 mg PO TID PRN (Reason: muscle spasm) Qty: 60 0RF Rx Instructions: Take 1 to 2 tablets by mouth three times a day as needed for pain atorvastatin 20 mg tablet 20 mg PO DAILY Qty: 90 3RF pantoprazole 40 mg tablet,delayed release (DR/EC) 40 mg PO DAILY Qty: 90 3RF amlodipine 5 mg tablet 5 mg PO BID Qty: 180 3RF Eliquis 5 mg tablet 5 mg PO BID Qty: 180 3RF No Action losartan 25 mg tablet 25 mg PO DAILY Qty: 90 3RF potassium chloride 20 mEq packet 20 meq PO TID Qty: 180 3RF Discharge Instructions Instructions: Blood in Urine (Hematuria), Adult ED Additional Instructions: Discontinue your Eliquis and follow-up with urology at your scheduled appointment on Should you have recurrence of atrial fibrillation please return to the emergency department for reassessment as you will not be anticoagulated Please return should you develop dizziness weakness or any new or worsening complaints You do have bladder masses, Dr. Haines will talk to you about your options at your upcoming appointment Referrals: Tiffanie Wick, FELIPE [Primary Care Provider] - 1 day Discharge Data Discharge Date/Time-TO BE ENTERED AT DEPARTURE: 10/08/24 15:12 HPI General Date/Time Provider Initiated Documentation: 10/08/24 11:33. HPI Narrative: The patient is an 79-year-old male presenting with a past medical history of atrial fibrillation with chronic anticoagulation, coronary artery disease, benign prostatic hyperplasia (BPH), and bladder cancer status post resection in 2019. He has had intermittent gross hematuria which started on Tuesday, improved, and then returned today. He reports gross hematuria since waking up this morning and a sensation of fullness in his bladder. He does not report any fever, chills, chest pain, or shortness of breath. He mentions feeling slightly lightheaded but does not report any dysuria or frequency. He did not receive chemotherapy or radiation post-bladder resection, which was performed at [facility]. Related Data Home Medications ?Medication ?Instructions ?Recorded ?Confirmed atorvastatin 20 mg tablet 20 mg PO DAILY #90 tabs 12/12/23 10/08/24 pantoprazole 40 mg tablet,delayed 40 mg PO DAILY #90 tabs 03/26/24 10/08/24 release cyclobenzaprine 5 mg tablet 5 - 10 mg (1 - 2 x 5 mg) PO TID 03/28/24 10/08/24 PRN muscle spasm #60 tabs metoprolol succinate 25 mg 25 mg PO DAILY #90 tabs 06/05/24 10/08/24 tablet,extended release 24 hr amlodipine 5 mg tablet 5 mg PO BID #180 tabs 08/27/24 10/08/24 apixaban 5 mg tablet (Eliquis) 5 mg PO BID #180 tabs 09/07/24 10/08/24 losartan 25 mg tablet 25 mg PO DAILY #90 tabs 10/08/24 potassium chloride 20 mEq oral 20 meq PO TID #180 ea 10/08/24 packet Previous Rx's ?Medication ?Instructions ?Recorded atorvastatin 20 mg tablet 20 mg PO DAILY #90 tabs 12/12/23 pantoprazole 40 mg tablet,delayed 40 mg PO DAILY #90 tabs 03/26/24 release cyclobenzaprine 5 mg tablet 5 - 10 mg (1 - 2 x 5 mg) PO TID 03/28/24 PRN muscle spasm #60 tabs metoprolol succinate 25 mg 25 mg PO DAILY #90 tabs 06/05/24 tablet,extended release 24 hr amlodipine 5 mg tablet 5 mg PO BID #180 tabs 08/27/24 apixaban 5 mg tablet (Eliquis) 5 mg PO BID #180 tabs 09/07/24 losartan 25 mg tablet 25 mg PO DAILY #90 tabs 10/08/24 potassium chloride 20 mEq oral 20 meq PO TID #180 ea 10/08/24 packet Allergies Allergy/AdvReac Type Severity Reaction Status Date / Time adhesive Allergy Intermediate redness, Verified 10/08/24 11:11 burning sensation, blisters blue dye Allergy Cough Verified 10/08/24 11:11 cephalexin monohydrate (From AdvReac Intermediate diarrhea Verified 10/08/24 11:11 Keflex) General Stated Complaint: Urinary OLIMPIA: 3 Exam Narrative Exam Narrative: General Appearance: Patient is alert and oriented, in no acute distress. Vital signs: Blood pressure is stable. HEENT: Within normal limits. Respiratory: Within normal limits. Cardiovascular: Gastrointestinal: Genitourinary: Bladder scan shows 167 mL. Lymphatic: Back, Musculoskeletal: No CVA tenderness appreciated. Extremities: Skin: No pallor, rashes, or lesions on the skin. Neurological: Normal. Psychiatric: Other observations: Course Vital Signs Vital signs: Vital Signs Temperature 37.0 C 10/08/24 11:08 Pulse 75 10/08/24 11:08 Respiratory Rate 20 10/08/24 11:08 Blood Pressure 127/77 10/08/24 11:08 Pulse Oximetry 92 10/08/24 11:08 Temperature 37.0 C 10/08/24 12:12 Pulse 63 10/08/24 13:34 Respiratory Rate 18 10/08/24 13:34 Respiratory Effort Normal, Non-Labored 10/08/24 13:34 Respiratory Depth Normal 10/08/24 13:34 Respiratory Pattern Normal 10/08/24 13:34 Blood Pressure 156/79 H 10/08/24 13:34 Blood Pressure Mean 104 10/08/24 13:34 Blood Pressure Position Sitting 10/08/24 13:34 Pulse Oximetry 94 10/08/24 13:34 Oxygen Delivery Method Nasal Cannula 10/08/24 13:34 Oxygen Flow Rate 0 10/08/24 12:12 Lab/Test Results Lab/Test Results: 10/08/24 11:45 Urine - Reflex from Ua Urine Culture - Pending Laboratory Tests Range/Units 10/08/24 10/08/24 11:45 12:03 WBC (4.4-10.8) 10^3/uL 9.11 RBC (4.36-5.78) 10^6/uL 5.54 Hgb (13.5-17.5) g/dL 16.5 Hct (40.0-50.0) % 47.8 MCV (80-95) fL 86 MCH (27.0-33.0) pg 29.8 MCHC (32.0-36.0) % 34.5 RDW (11.8-14.1) % 12.0 Plt Count (130-400) 10^3/uL 172 MPV (8.0-11.0) fL 9.9 Immature Gran % % 0.3 Neutrophils % % 74.8 Lymphocytes % % 15.9 Monocytes % % 8.1 Eosinophils % % 0.4 Basophils % % 0.5 Nucleated RBC % (0.0-0.3) % 0.0 Absolute Neutrophils (1.2-6.7) 10^3/uL 6.80 H Absolute Lymphocytes (1.2-3.4) 10^3/uL 1.45 Absolute Monocytes (0.1-0.8) 10^3/uL 0.74 Absolute Eosinophils (0.0-0.7) 10^3/uL 0.04 Absolute Basophils (0.0-0.2) 10^3/uL 0.05 Sodium (136-145) mmol/L 137 Potassium (3.5-5.1) mmol/L 3.2 L Chloride (98-107) mmol/L 98 Carbon Dioxide (21.0-32.0) mmol/L 30.7 Anion Gap (3-11) mmol/L 8.3 BUN (7-18) mg/dL 17 Creatinine (0.70-1.30) mg/dL 1.0 Est GFR (CKD-EPI 2020) (mL/min/1.73m2) 75.61 Glucose (74-106) mg/dL 136 H Calcium (8.5-10.1) mg/dL 9.2 Total Bilirubin (0.2-1.0) mg/dL 0.6 AST (15-37) U/L 91 H ALT (16-63) U/L 115 H Alkaline Phosphatase (46-116) U/L 113 Total Protein (6.4-8.2) g/dL 7.9 Albumin (3.4-5.0) g/dL 3.9 Urine Color (Yellow) Other Urine Clarity (Clear) Cloudy Urine pH (5-8) 7.0 Ur Specific Greene (1.005-1.025) 1.025 Urine Protein (Neg-Trace) mg/dL >=300 H Urine Ketones (Negative) mg/dL Negative Urine Blood (Negative) Large H Urine Nitrite (Negative) Negative Urine Bilirubin (Negative) Negative Urine Urobilinogen (Up to 0.2) mg/dL 0.2 Ur Leukocyte Esterase (Negative) Negative Urine RBC (0-2) HPF >50 H Urine WBC Not Applicable Ur Epithelial Cells Not Applicable Urine Crystals Not Applicable Urine Bacteria Not Applicable Urine Mucus Not Applicable Ur Culture Indicated? Yes Urine Glucose (Negative) mg/dL Negative ABO/Rh O Positive Antibody Screen NEGATIVE Medical Decision Making Laboratory Studies Urinalysis shows gross 1, greater than 50 red blood cells, no evidence of infection. Mild hypokalemia 3.2. Hemoglobin and hematocrit within normal limits. Glucose 136. Mild elevation in LFTs, AST 91, ALT 115. Imaging CT scan shows two bladder masses. Initial Assessment: 79-year-old male with a history of atrial fibrillation, coronary artery disease, BPH, and bladder cancer, presenting with gross hematuria and bladder fullness sensation. Denies fever, chills, chest pain, shortness of breath, dysuria, or frequency. Reports feeling lightheaded. No acute distress, pallor, rashes, or lesions. Bladder scan shows 167 mL, no CVA tenderness. Urinalysis: >50 RBCs, no infection. Mild hypokalemia (3.2), stable BP, normal hemoglobin and hematocrit, glucose 136, mild elevation in LFTs (AST 91, ALT 115). Differential Diagnosis: - Gross hematuria: Urinalysis shows improvement. CT scan reveals two bladder masses. Plan: Discontinue Eliquis, likely bladder resection this week. - Atrial fibrillation: Currently in normal sinus rhythm. Plan: Discontinue Eliquis as per urologist's recommendation, return if atrial fibrillation recurs. - Mild hypokalemia: Potassium level 3.2. - Mild elevation in liver function tests: AST 91, ALT 115. Encouraged to recheck. ED Course: - Urinalysis: Gross hematuria, >50 RBCs, no infection. - Bladder scan: 167 mL, no CVA tenderness. - CT scan: Two bladder masses, discussed with Dr. Haines (urologist). - Labs: Mild hypokalemia (3.2), glucose 136, mild elevation in LFTs (AST 91, ALT 115), normal hemoglobin and hematocrit. - Plan: Discontinue Eliquis, likely bladder resection this week. Final Assessment: Patient with gross hematuria and bladder masses, mild hypokalemia, and mild elevation in liver function tests. Plan includes discontinuing Eliquis and preparing for likely bladder resection. Clinical Impression: - Gross hematuria - Atrial fibrillation - Mild hypokalemia - Mild elevation in liver function tests Disposition: - Discharge: Patient to follow up with Dr. Haines, urologist, on . - Follow-Up: Recheck liver function tests. MDM Components Evaluation: - Number of Differential Diagnoses or Management Options: Gross hematuria, atrial fibrillation, mild hypokalemia, mild elevation in liver function tests. - Amount and Complexity of Data Reviewed: Urinalysis, bladder scan, CT scan, labs. - Risk of Complication and Morbidity or Mortality: Moderate due to potential for recurrent atrial fibrillation and need for bladder resection. Quality:SDOH Health Related Social Needs: No Data to Display PFSH All Active Problems (Updated 10/08/24 @ 14:59 by TAYLER Paez) Gross hematuria (Acute) Bladder mass (Acute) Anticoagulated (Acute) Hematuria (Acute) Malignant neoplasm of bladder (Chronic ~2019) Papillary Urothelial Carcinoma s/p TURBT--doesn't desire further treatment or followup Coronary artery disease (Chronic) S/p CABG x 1 (COREAS to LAD) 2015 Paroxysmal atrial fibrillation (Chronic) Obstructive sleep apnea (Chronic) Moderate to severe on PSG in 11/29/2015. Declined CPAP Essential hypertension (Chronic) Hyperlipidemia (Chronic) Prediabetes (Chronic) Obesity (Chronic) Retinal hemorrhage, left eye (Chronic) Sensorineural hearing loss, bilateral (Chronic) Peripheral neuropathy (Chronic) Essential tremor (Chronic) GERD (gastroesophageal reflux disease) (Chronic) BPH loc w urin obs/LUTS (Chronic) Pipe smoker (Chronic) Allergic rhinitis (Chronic) Medical History Aortic stenosis S/p AVR x 2 Surgical History H/O transurethral resection of bladder tumor (TURBT) (05/25/22) S/P TAVR (transcatheter aortic valve replacement) (10/13/22) TAVR with 26mm ultra R valve in 25mm pericardial surgical valve History of aortic valve replacement with bioprosthetic valve (07/20/16) S/P CABG x 1 (07/20/16) Family History Mother Heart disease Myocardial infarction Father Bone cancer Brother No problems noted. Brother COPD (chronic obstructive pulmonary disease) Brother No problems noted. Sister No problems noted. Maternal Grandfather No problems noted. Maternal Grandmother No problems noted. Paternal Grandfather No problems noted. Paternal Grandmother No problems noted. Social History Smoking/Tobacco Use Status: Current every day Tobacco Type: pipe Tobacco: How many years used: 65 Smokeless tobacco user: other (pipe) Quit status: not considering quitting Second Hand Exposure: Yes Smoking risk assessment performed?: Yes Alcohol Intake: current Alcohol Intake frequency: a few times a week Alcohol type: beer Drug use: Never Substance use type: does not use Adopted: No Household members: spouse Housing: house Number of Children: 0 number of grandchildren: 0 Communication Needs: Hard of Hearing Do you need help understanding health information?: Rarely current occupation: [employer] Sexually active: No Do you think of yourself as: straight/heterosexual Current gender identity: male What is your relationship status?: How often do you talk on the phone with friends or family?: three or more times per week How often do you get together with friends or relatives?: three or more times per week How often do you attend christian or confucianist services?: decline to answer Do you belong to any clubs or organized social groups?: yes Panel score (0-1 are the most socially isolated patients): 3 What type of physical activity do you participate in: other Details: Work Joanne/Christianity: Non judaism Special joanne needs: No Seatbelt use: sometimes Helmet use: No Drive intox or ride w/intox lift driver: No Firearms in home: Yes Do you feel safe at home: Yes Do you feel safe in your relationship?: Yes Would you like helpful sources: No
[2024-10-08 14:49] VITALS: BP 165/80; PULSE 72; RESP 18; O2SAT 95
== END 2024-10-08 15:12 | disposition home or self-care (01) ==
PROVIDERS: Emergency Provider Physician Assistant; PCP Nurse Practitioner Family
DX: R31.0 Gross hematuria (principal); D49.4 Neoplasm of unspecified behavior of bladder; E87.6 Hypokalemia; I48.0 Paroxysmal atrial fibrillation; I10 Essential (primary) hypertension; E78.5 Hyperlipidemia, unspecified; I25.10 Atherosclerotic heart disease of native coronary artery without angina pectoris; F17.290 Nicotine dependence, other tobacco product, uncomplicated; Z85.51 Personal history of malignant neoplasm of bladder; Z79.01 Long term (current) use of anticoagulants; Z95.2 Presence of prosthetic heart valve; Z95.1 Presence of aortocoronary bypass graft
CPT/HCPCS: 36415; 80053; 86850; 86900; 86901; 99285; 74177; 81003; 81015; 85025; 87086; J3490

== ENCOUNTER → 2024-10-11 14:45 | Outpatient (BNVA) | payer MEDICARE, SELFPAY | PROVIDERS: PCP Nurse Practitioner Family; Referring Provider Nurse Practitioner Family; Visit Provider Nurse Practitioner Gerontology | DX: R31.9 Hematuria, unspecified (principal); I48.0 Paroxysmal atrial fibrillation; I10 Essential (primary) hypertension; I25.10 Atherosclerotic heart disease of native coronary artery without angina pectoris; Z95.2 Presence of prosthetic heart valve; Z95.1 Presence of aortocoronary bypass graft | CPT/HCPCS: 99215 ==

== ENCOUNTER → 2024-12-04 11:00 | Outpatient (BNVA) | payer MEDICARE, SELFPAY | PROVIDERS: PCP Nurse Practitioner Family; Visit Provider Internal Medicine Cardiovascular Disease | DX: I25.810 Atherosclerosis of coronary artery bypass graft(s) without angina pectoris (principal); I48.0 Paroxysmal atrial fibrillation; Z95.2 Presence of prosthetic heart valve | CPT/HCPCS: 99213 ==

== ENCOUNTER 2025-03-18 16:33 | Outpatient (REF) | payer MEDICARE, SELFPAY ==
[2025-03-18 21:05] LABS: Glucose Negative (Negative)
[2025-03-18 21:24] LABS: WBC >50 HPF (0-5)
== END 2025-03-18 16:34 | disposition home or self-care (01) ==
LOC: LBN 16:33
PROVIDERS: PCP Nurse Practitioner Family; Visit Provider Nurse Practitioner Family
DX: N30.90 Cystitis, unspecified without hematuria (principal)
CPT/HCPCS: 87077; 81003; 81015; 87086; 87186

== ENCOUNTER 2025-06-11 00:48 | Outpatient (CLI) | payer MEDICARE, SELFPAY ==
[2025-06-11 14:09] LABS: Hemoglobin A1C 6.0 % (<5.7)
[2025-06-11 14:10] LABS: Anion Gap 5.5 mmol/L (3-11); BUN 13 mg/dL (9-23); CO2 25.5 mmol/L (20.0-31.0); Calcium 8.7 mg/dL (8.3-10.6); Chloride 109 mmol/L (98-107); Cholesterol 144 mg/dL (<200); Glucose 148 mg/dL (74-106); HDL Cholesterol 68 mg/dL (>40); Potassium 3.6 mmol/L (3.5-5.1); Sodium 140 mmol/L (136-145)
== END 2025-06-11 00:49 | disposition home or self-care (01) ==
LOC: LOS 00:48
PROVIDERS: PCP Nurse Practitioner Family; Visit Provider Nurse Practitioner Family
DX: I25.10 Atherosclerotic heart disease of native coronary artery without angina pectoris (principal); R73.03 Prediabetes
CPT/HCPCS: 36415; 80048; 80061; 83036